=== PATIENT | female | born 1960 | race Caucasian/White ===

== ENCOUNTER → 2018-05-26 09:13 | Outpatient (CLI) | payer OTHER, SELFPAY ==
[2018-05-26 11:05] LABS: Cholesterol 255 mg/dL (140-199); HDL Cholesterol 71 mg/dL (40-60); LDL Cholesterol Calculated 152 mg/dL (<100); Triglycerides 160 mg/dL (35-150)
== END ==
PROVIDERS: PCP Family Medicine; Visit Provider Family Medicine
DX: Z13.220 Encounter for screening for lipoid disorders (principal)
CPT/HCPCS: 36415; 80061

== ENCOUNTER → 2018-07-12 08:18 | Outpatient (CLI) | payer OTHER, MEDICAID, SELFPAY ==
--- NOTE | 2018-07-12 | DI.MG.S_ITS ---
BILATERAL DIGITAL SCREENING MAMMOGRAM 3D/2D WITH CAD: 07/12/2018 CLINICAL: Routine screening. Comparison is made to exams dated: 01/27/2017 mammogram, 06/22/2016 mammogram, and 05/27/2015 mammogram - [facility] 1041. The tissue of both breasts is heterogeneously dense. This may lower the sensitivity of mammography. Current study was also evaluated with a Computer Aided Detection (CAD) system. There are benign vascular calcifications in both breasts. No significant masses, calcifications, or other findings are seen in either breast. There has been no significant interval change. IMPRESSION: BENIGN There is no mammographic evidence of malignancy. A 1 year screening mammogram is recommended. This exam was interpreted at Station ID: [id number]. NOTE: For mammograms, a report in lay terms will be sent to the patient. Approximately 15% of breast malignancies will not be visualized mammographically. In the management of a palpable breast mass, a negative mammogram must not discourage biopsy of a clinically suspicious lesion. Electronically Signed By: Lukas myles/soraya:07/13/2018 01:12:38 letter sent: Normal Exam ACR BI-RADS Category 2: Benign Finding(s) 3342F
== END ==
PROVIDERS: PCP Family Medicine; Visit Provider Family Medicine
DX: Z12.31 Encounter for screening mammogram for malignant neoplasm of breast (principal)
CPT/HCPCS: 77063; 77067

== ENCOUNTER → 2019-02-05 10:55 | Outpatient (CLI) | payer OTHER, MEDICAID, SELFPAY ==
[2019-02-05 12:08] LABS: Add Manual Diff / Slide Review NO; Basophils Absolute Auto 100 /uL (0-100); Basophils Percent Auto 1.4 % (0-2); Eosinophils Absolute Auto 100 /uL (0-450); Eosinophils Percent Auto 1.6 % (2-4); Hematocrit 37.7 % (36-46); Hemoglobin 12.4 g/dL (12.0-16.0); Lymphocytes Absolute Auto 1400 /uL (1100-4500); Lymphocytes Percent Auto 30.3 % (25-40); Mean Corpuscular HGB Conc 32.9 % (30-36); Mean Corpuscular Hemoglobin 29.9 PG (26-34); Mean Corpuscular Volume 90.7 fL (80-100); Monocytes Absolute Auto 400 /uL (0-900); Monocytes Percent Auto 8.1 % (3-14); Neutrophils Absolute Auto 2700 /uL (1500-7000); Neutrophils Percent Auto 58.6 % (50-75); Platelet Count 324 X10^3/uL (150-400); Red Blood Cell Count 4.16 X10^6/uL (4.0-5.2); Red Cell Distribution Width 14.3 % (11.6-14.8); White Blood Cell Count 4.6 X10^3/uL (4.5-11.0)
[2019-02-05 12:37] LABS: Alanine Aminotransferase 29 IU/L (9-52); Albumin 4.3 g/dL (3.5-5.0); Albumin Globulin Ratio 1.3 (1.0-2.8); Alkaline Phosphatase 86 U/L (38-126); Aspartate Aminotransferase 37 IU/L (14-36); Bilirubin Total 0.4 mg/dL (0.2-1.3); Blood Urea Nitrogen 13 mg/dL (7-17); Calcium 9.2 mg/dL (8.4-10.2); Carbon Dioxide 28 mmol/L (22-32); Chloride 103 mmol/L (98-107); Estimated Glomerular Filt Rate 56.9 mL/min (>60); Globulin 3.3 g/dL (1.7-4.1); Glucose 81 mg/dL (70-100); HEMOLYSIS < 15 (0-50); Potassium 4.4 mmol/L (3.4-5.1); Sodium 139 mmol/L (137-145); Total Protein 7.6 g/dL (6.3-8.2)
[2019-02-05 13:05] LABS: Cortisol Random 6.39 ug/dL
[2019-02-07 14:13] LABS: Dehydroepiandrosterone Sulfate 11 mcg/dL (8-188)
== END ==
PROVIDERS: PCP Family Medicine; Visit Provider Family Medicine
DX: M79.7 Fibromyalgia (principal); R53.83 Other fatigue
CPT/HCPCS: 36415; 80053; 82533; 82627; 85025

== ENCOUNTER → 2019-05-04 10:36 | Outpatient (CLI) | payer OTHER, MEDICAID, SELFPAY ==
[2019-05-04 12:40] LABS: Add Manual Diff / Slide Review NO; Basophils Absolute Auto 0 /uL (0-100); Eosinophils Absolute Auto 100 /uL (0-450); Eosinophils Percent Auto 1.5 % (2-4); Hematocrit 40.4 % (36-46); Hemoglobin 13.3 g/dL (12.0-16.0); Lymphocytes Absolute Auto 1300 /uL (1100-4500); Lymphocytes Percent Auto 31.1 % (25-40); Mean Corpuscular HGB Conc 32.9 % (30-36); Mean Corpuscular Hemoglobin 29.7 PG (26-34); Mean Corpuscular Volume 90.4 fL (80-100); Monocytes Absolute Auto 300 /uL (0-900); Monocytes Percent Auto 6.6 % (3-14); Neutrophils Absolute Auto 2500 /uL (1500-7000); Neutrophils Percent Auto 59.8 % (50-75); Platelet Count 355 X10^3/uL (150-400); Red Blood Cell Count 4.47 X10^6/uL (4.0-5.2); Red Cell Distribution Width 14.3 % (11.6-14.8); White Blood Cell Count 4.1 X10^3/uL (4.5-11.0)
[2019-05-04 13:21] LABS: Alanine Aminotransferase 18 IU/L (9-52); Albumin 4.5 g/dL (3.5-5.0); Albumin Globulin Ratio 1.5 (1.0-2.8); Alkaline Phosphatase 84 U/L (38-126); Aspartate Aminotransferase 23 IU/L (14-36); BUN Creatinine Ratio 17.5 (6-22); Bilirubin Total 0.5 mg/dL (0.2-1.3); Blood Urea Nitrogen 14 mg/dL (7-17); Calcium 9.8 mg/dL (8.4-10.2); Carbon Dioxide 26 mmol/L (22-32); Chloride 106 mmol/L (98-107); Estimated Glomerular Filt Rate > 60.0 mL/min (>60); Globulin 3.1 g/dL (1.7-4.1); Glucose 90 mg/dL (70-100); HEMOLYSIS < 15 (0-50); Potassium 4.6 mmol/L (3.4-5.1); Sodium 142 mmol/L (137-145); Total Protein 7.6 g/dL (6.3-8.2)
[2019-05-04 13:32] LABS: Free T3, Triiodothyronine Free 4.25 pg/mL (2.77-5.27); Free T4, Direct Thyroxine 1.54 ng/dL (0.78-2.19)
[2019-05-04 13:46] LABS: Thyroid Stimulating Hormone 1.66 uIU/mL (0.47-4.68)
[2019-05-04 14:41] LABS: Progesterone, Total 0.59 ng/mL
[2019-05-08 15:01] LABS: Thyroid Peroxidase Antibodies 1 IU/mL (< 9)
[2019-05-08 15:31] LABS: CMV IgM Antibody < 30.00 AU/mL (< 30.00)
[2019-05-08 22:13] LABS: Draw Date 3 62719; Draw Date 4 62719; Draw Time 3 1200; Draw Time 3 1600; Draw Time 4 2400
[2019-05-09 14:39] LABS: Anti Thyroglobulin Antibody < 1 IU/mL (< 2)
[2019-05-11 11:52] LABS: Triiodothyronine T3 Reverse 15 ng/dL (8-25)
[2019-05-11 15:58] LABS: Dehydroepiandrosterone Sulfate 25 mcg/dL (8-188)
== END ==
PROVIDERS: Family Provider Family Medicine; PCP Family Medicine; Visit Provider Naturopath
DX: K59.00 Constipation, unspecified (principal); F33.0 Major depressive disorder, recurrent, mild; N95.1 Menopausal and female climacteric states
CPT/HCPCS: 36415; 80053; 82530; 82627; 82670; 84144; 84403; 84439; 84443; 84481; 84482; 85025; 86376; 86644; 86645; 86664; 86665; 86790; 86800

== ENCOUNTER → 2020-06-18 13:00 | Outpatient (CLI) | payer OTHER, MEDICAID, SELFPAY ==
[2020-06-18 15:25] LABS: Free T3, Triiodothyronine Free 3.48 pg/mL (2.77-5.27); Free T4, Direct Thyroxine 1.18 ng/dL (0.78-2.19)
[2020-06-18 15:39] LABS: Thyroid Stimulating Hormone 1.61 uIU/mL (0.47-4.68)
== END ==
PROVIDERS: Family Provider Family Medicine; PCP Family Medicine
DX: E03.9 Hypothyroidism, unspecified (principal)
CPT/HCPCS: 36415; 84439; 84443; 84481

== ENCOUNTER → 2020-07-17 15:30 | Outpatient (CLI) | payer OTHER, MEDICAID, SELFPAY ==
--- NOTE | 2020-07-17 15:43 | DI.MG.S_ITS ---
Patient Name: SAAD RAMOS date: 1960 Sex: F Attending Physician: Opal Indications: Date: 07/17/2020 15:33 At the request of: STALIN GARCIA Procedure: MM screening mammo BI BILATERAL DIGITAL SCREENING MAMMOGRAM 3D/2D WITH CAD: 07/17/2020 CLINICAL: Routine screening. Comparison is made to exams dated: 07/12/2018 mammogram - [facility], 01/27/2017 mammogram, and 06/22/2016 mammogram - [facility]. The tissue of both breasts is heterogeneously dense. This may lower the sensitivity of mammography. Current study was also evaluated with a Computer Aided Detection (CAD) system. There are benign vascular calcifications in both breasts. No significant masses, calcifications, or other findings are seen in either breast. There has been no significant interval change. IMPRESSION: BENIGN There is no mammographic evidence of malignancy. A 1 year screening mammogram is recommended. This exam was interpreted at Station ID: [id number]. NOTE: For mammograms, a report in lay terms will be sent to the patient. Approximately 15% of breast malignancies will not be visualized mammographically. In the management of a palpable breast mass, a negative mammogram must not discourage biopsy of a clinically suspicious lesion. Electronically Signed By: Donald urias/soraya:07/17/2020 17:29:42 letter sent: Normal Exam ACR BI-RADS Category 2: Benign Finding(s) 3342F
== END ==
PROVIDERS: Family Provider Family Medicine; PCP Family Medicine; Referring Provider Family Medicine; Visit Provider Family Medicine
DX: Z12.31 Encounter for screening mammogram for malignant neoplasm of breast (principal)
CPT/HCPCS: 77063; 77067

== ENCOUNTER → 2020-09-06 08:22 | Outpatient (CLI) | payer OTHER, MEDICAID, SELFPAY ==
[2020-09-06 09:20] LABS: Add Manual Diff / Slide Review NO; Basophils Absolute Auto 100 /uL (0-100); Basophils Percent Auto 0.8 % (0-2); Eosinophils Absolute Auto 100 /uL (0-450); Eosinophils Percent Auto 1.4 % (2-4); Hematocrit 36.9 % (36-46); Hemoglobin 12.3 g/dL (12.0-16.0); Lymphocytes Absolute Auto 1700 /uL (1100-4500); Mean Corpuscular HGB Conc 33.2 % (30-36); Mean Corpuscular Hemoglobin 30.7 PG (26-34); Mean Corpuscular Volume 92.5 fL (80-100); Monocytes Absolute Auto 500 /uL (0-900); Monocytes Percent Auto 7.6 % (3-14); Neutrophils Absolute Auto 4200 /uL (1500-7000); Neutrophils Percent Auto 64.2 % (50-75); Platelet Count 347 X10^3/uL (150-400); Red Blood Cell Count 3.99 X10^6/uL (4.0-5.2); Red Cell Distribution Width 13.4 % (11.6-14.8); White Blood Cell Count 6.5 X10^3/uL (4.5-11.0)
[2020-09-06 09:35] LABS: Alanine Aminotransferase 15 IU/L (<35); Albumin 3.8 g/dL (3.5-5.0); Albumin Globulin Ratio 1.2 (1.0-2.8); Alkaline Phosphatase 61 U/L (38-126); Aspartate Aminotransferase 25 IU/L (14-36); BUN Creatinine Ratio 21.4 (6-22); Bilirubin Total 0.3 mg/dL (0.2-1.3); Blood Urea Nitrogen 18 mg/dL (7-17); Calcium 8.4 mg/dL (8.4-10.2); Carbon Dioxide 28 mmol/L (22-32); Chloride 108 mmol/L (98-107); Estimated Glomerular Filt Rate > 60.0 mL/min (>60); Globulin 3.1 g/dL (1.7-4.1); Glucose 91 mg/dL (70-100); HEMOLYSIS < 15 (0-50); Sodium 138 mmol/L (137-145); Total Protein 6.9 g/dL (6.3-8.2)
[2020-09-06 10:04] LABS: Free T3, Triiodothyronine Free 3.23 pg/mL (2.77-5.27); Free T4, Direct Thyroxine 1.17 ng/dL (0.78-2.19)
[2020-09-06 10:18] LABS: Thyroid Stimulating Hormone 0.927 uIU/mL (0.47-4.68)
== END ==
PROVIDERS: Naturopath; Family Provider Family Medicine; PCP Family Medicine; Referring Provider Family Medicine; Visit Provider Family Medicine
DX: D70.9 Neutropenia, unspecified (principal); Z13.1 Encounter for screening for diabetes mellitus
CPT/HCPCS: 36415; 80053; 84439; 84443; 84481; 85025

== ENCOUNTER → 2020-10-06 07:22 | Outpatient (CLI) | payer OTHER, MEDICAID, SELFPAY ==
[2020-10-06 10:20] LABS: HEMOLYSIS < 15 (0-50); Iron 59 ug/dL (37-170)
[2020-10-06 10:21] LABS: Cholesterol 252 mg/dL (140-199); HDL Cholesterol 50 mg/dL (40-60); LDL Cholesterol Calculated 157 mg/dL (<100); Triglycerides 224 mg/dL (35-150)
[2020-10-06 10:32] LABS: Percent Iron Saturation 20 % (15-50); Total Iron Binding Capacity 302 ug/dL (265-497); Transferrin 223 mg/dL (206-381)
[2020-10-06 10:37] LABS: Progesterone, Total 0.53 ng/mL
[2020-10-06 10:54] LABS: Testosterone 9.31 ng/dL (5.71-77.0)
[2020-10-08 12:27] LABS: Estriol,Serum 0.1 ng/mL (.); Estrone,Serum 129 pg/mL (.)
== END ==
PROVIDERS: Family Provider Family Medicine; PCP Family Medicine; Referring Provider Naturopath; Visit Provider Naturopath
DX: E03.9 Hypothyroidism, unspecified (principal)
CPT/HCPCS: 36415; 80061; 82670; 82677; 82679; 83540; 83550; 84144; 84270; 84403

== ENCOUNTER → 2021-01-26 07:54 | Outpatient (CLI) | payer OTHER, MEDICAID, SELFPAY ==
[2021-01-26 08:59] LABS: Add Manual Diff / Slide Review NO; Basophils Absolute Auto 0 /uL (0-100); Basophils Percent Auto 0.7 % (0-2); Eosinophils Absolute Auto 100 /uL (0-450); Eosinophils Percent Auto 1.7 % (2-4); Hematocrit 35.9 % (36-46); Hemoglobin 12.1 g/dL (12.0-16.0); Lymphocytes Absolute Auto 1700 /uL (1100-4500); Lymphocytes Percent Auto 28.1 % (25-40); Mean Corpuscular HGB Conc 33.8 % (30-36); Mean Corpuscular Hemoglobin 30.9 PG (26-34); Mean Corpuscular Volume 91.3 fL (80-100); Monocytes Absolute Auto 400 /uL (0-900); Monocytes Percent Auto 6.5 % (3-14); Neutrophils Absolute Auto 3900 /uL (1500-7000); Platelet Count 379 X10^3/uL (150-400); Red Blood Cell Count 3.93 X10^6/uL (4.0-5.2); Red Cell Distribution Width 13.2 % (11.6-14.8); White Blood Cell Count 6.1 X10^3/uL (4.5-11.0)
[2021-01-26 09:23] LABS: Progesterone, Total 0.95 ng/mL
[2021-01-26 09:38] LABS: Testosterone 13.2 ng/dL (5.71-77.0)
[2021-02-02 11:26] LABS: Estriol,Serum <0.1 ng/mL (.); Estrone,Serum 211 pg/mL (.)
== END ==
PROVIDERS: Family Provider Family Medicine; PCP Family Medicine; Referring Provider Naturopath; Visit Provider Naturopath
DX: Z79.890 Hormone replacement therapy (principal); R79.89 Other specified abnormal findings of blood chemistry
CPT/HCPCS: 36415; 82670; 82677; 82679; 84144; 84270; 84403; 85025

== ENCOUNTER → 2021-03-02 09:23 | Outpatient (CLI) | payer OTHER, MEDICAID, SELFPAY ==
[2021-03-02 11:42] LABS: Estradiol, Total 182.7 pg/mL
== END ==
PROVIDERS: Family Provider Family Medicine; PCP Family Medicine; Referring Provider Naturopath; Visit Provider Naturopath
DX: Z79.890 Hormone replacement therapy (principal); R79.89 Other specified abnormal findings of blood chemistry
CPT/HCPCS: 36415; 82670; 82679

== ENCOUNTER → 2022-01-05 07:52 | Outpatient (CLI) | payer OTHER, MEDICAID, SELFPAY ==
[2022-01-05 10:04] LABS: Alanine Aminotransferase 10 IU/L (<35); Albumin Globulin Ratio 1.4 (1.0-2.8); Alkaline Phosphatase 49 U/L (38-126); Aspartate Aminotransferase 21 IU/L (14-36); BUN Creatinine Ratio 15.4 (6-22); Bilirubin Total 0.3 mg/dL (0.2-1.3); Blood Urea Nitrogen 12 mg/dL (7-17); Calcium 8.9 mg/dL (8.4-10.2); Carbon Dioxide 27 mmol/L (22-32); Chloride 108 mmol/L (98-107); Estimated Glomerular Filt Rate > 60.0 mL/min (>60); Globulin 2.9 g/dL (1.7-4.1); Glucose 86 mg/dL (80-110); HEMOLYSIS < 15 (0-50); Potassium 4.6 mmol/L (3.4-5.1); Sodium 139 mmol/L (137-145); Total Protein 6.9 g/dL (6.3-8.2)
== END ==
PROVIDERS: Family Provider Family Medicine; PCP Family Medicine; Referring Provider Family Medicine; Visit Provider Family Medicine
DX: Z01.419 Encounter for gynecological examination (general) (routine) without abnormal findings (principal); Z13.1 Encounter for screening for diabetes mellitus; Z79.890 Hormone replacement therapy
CPT/HCPCS: 36415; 80053

== ENCOUNTER → 2022-07-13 16:11 | Outpatient (CLI) | payer OTHER, MEDICAID, SELFPAY ==
--- NOTE | 2022-07-13 16:12 | DI.MG.S_ITS ---
BILATERAL DIGITAL SCREENING MAMMOGRAM 3D/2D WITH CAD: 07/13/2022 CLINICAL: Routine screening. Comparison is made to exams dated: 07/17/2020 mammogram, 07/12/2018 mammogram - [facility], and 01/27/2017 mammogram - [facility]. Both breasts are heterogeneously dense, which may obscure small masses (category c / 51-75% glandular tissue). Current study was also evaluated with a Computer Aided Detection (CAD) system. There is a possible developing oval equal density asymmetry in the left breast middle depth superior region seen on the mediolateral oblique view only. This is more prominent. No other significant masses, calcifications, or other findings are seen in either breast. IMPRESSION: INCOMPLETE: NEEDS ADDITIONAL IMAGING EVALUATION The possible developing oval equal density asymmetry in the left breast is indeterminate. Additional views with possible ultrasound are recommended. Based on the Tyrer Cuzick model (a risk assessment model) the patient's lifetime risk is 9.1% and her 10 year risk is 3.8%. According to the ACR, ACS, and NCCN guidelines, an annual breast MRI exam along with mammogram is recommended if the patient's lifetime risk is 20% or greater. This exam was interpreted at Station ID: [id number]. NOTE: For mammograms, a report in lay terms will be sent to the patient. Approximately 15% of breast malignancies will not be visualized mammographically. In the management of a palpable breast mass, a negative mammogram must not discourage biopsy of a clinically suspicious lesion. Electronically Signed By: Donald urias/soraya:07/14/2022 08:41:47 letter sent: Additional Imaging Needed ACR BI-RADS Category 0: Incomplete 3340F
== END ==
PROVIDERS: Family Provider Family Medicine; PCP Family Medicine; Referring Provider Family Medicine; Visit Provider Family Medicine
DX: Z12.31 Encounter for screening mammogram for malignant neoplasm of breast (principal); R92.8 Other abnormal and inconclusive findings on diagnostic imaging of breast
CPT/HCPCS: 77063; 77067

== ENCOUNTER → 2022-07-26 08:43 | Outpatient (CLI) | payer OTHER, MEDICAID, SELFPAY ==
--- NOTE | 2022-07-26 | DI.MG.S_ITS ---
UNILATERAL LEFT DIGITAL DIAGNOSTIC MAMMOGRAM 3D/2D WITH ADDITIONAL VIEWS: 07/26/2022 CLINICAL: Additional evaluation requested from prior study. Comparison is made to exams dated: 07/13/2022 mammogram, 07/17/2020 mammogram, and 07/12/2018 mammogram - . The left breast is heterogeneously dense, which may obscure small masses (category c / 51-75% glandular tissue). The possible asymmetry in the left breast middle depth superior region seen on the mediolateral oblique view only is no longer seen and most likely is fibroglandular tissue. No other significant masses or calcifications are seen in the breast. IMPRESSION: PROBABLY BENIGN A follow-up mammogram in 6 months is recommended to confirm the no longer seen asymmetry in the left breast middle depth superior region seen on the mediolateral oblique view only. A follow-up mammogram in 6 months is recommended to demonstrate stability. Based on the Tyrer Cuzick model (a risk assessment model) the patient's lifetime risk is 9.1% and her 10 year risk is 3.8%. According to the ACR, ACS, and NCCN guidelines, an annual breast MRI exam along with mammogram is recommended if the patient's lifetime risk is 20% or greater. This exam was interpreted at Station ID: [id number]. NOTE: For mammograms, a report in lay terms will be sent to the patient. Approximately 15% of breast malignancies will not be visualized mammographically. In the management of a palpable breast mass, a negative mammogram must not discourage biopsy of a clinically suspicious lesion. Electronically Signed By: Jon Bueno M.D., jr/soraya:07/26/2022 10:03:01 letter sent: Followup Recommended ACR BI-RADS Category 3: Probably benign 3343F
== END ==
PROVIDERS: Family Provider Family Medicine; PCP Family Medicine; Referring Provider Family Medicine; Visit Provider Family Medicine
DX: N64.89 Other specified disorders of breast (principal)
CPT/HCPCS: 77065; G0279

== ENCOUNTER → 2022-08-18 15:06 | Outpatient (CLI) | payer OTHER, MEDICAID, SELFPAY ==
[2022-08-18 17:20] LABS: COVID19 -Nasal RAPID Negative (Negative)
== END ==
PROVIDERS: Family Provider Family Medicine; PCP Family Medicine; Visit Provider Surgery
DX: Z01.812 Encounter for preprocedural laboratory examination (principal); Z20.822 Contact with and (suspected) exposure to COVID-19
CPT/HCPCS: 87635; C9803

== ENCOUNTER 2022-08-19 13:53 | Day surgery (SDC) | payer OTHER, MEDICAID, SELFPAY ==
--- NOTE | 2022-08-19 | PATH_ITS ---
[facility] Accession Number: [id number] . 01 Material submitted: . rectum - RECTAL POLYP . 01 Diagnosis: Rectum, Polyp, Biopsy: Hyperplastic polyp. MRV 08/23/2022 1216 Local . 01 Electronically signed: . Tamela Fox MD, Pathologist NPI- [id number] . 01 Gross description: . RECTAL POLYP: Received in formalin is 1 fragment(s) of ramírez, soft tissue measuring 0.4 x 0.3 x 0.2 cm submitted entirely in 1 cassette(s) /LUIS 08/21/2022 0021 Local . 01 Pathologist provided ICD-10: K63.5 . 01 CPT . 934154 Specimen Comment: A courtesy copy of this report has been sent to [phone] Performed at: 01 [facility] [address] [place] [address] [id number] MD Amadeo Baldwin MD Phone: [phone]
[2022-08-19 14:10] VITALS: BP 114/78; PULSE 76; RESP 17; TEMP 36.2; O2SAT 97; BMI 27.4
[2022-08-19] MEDS: LACTATED RINGERS 1,000 ML 84 ML IV (14:34)
--- NOTE | 2022-08-19 15:27 | PM.HP.1 ---
History of Present Illness History of Present Illness Date Patient Seen: 08/19/22 Time Patient Seen: 15:28 Chief complaint: SCREENING COLONOSCOPY Narrative: Migdalia is a 61-year-old woman who is here for a colonoscopy. She believes her last was about 10 years ago and no polyps were found. She was told she had diverticulosis at that time. She has had mild to moderate left lower quadrant pain for the past few months. Patient History Medical History (Updated 08/19/22 @ 15:28 by Isiah Garcia MD) Basal cell carcinoma Chicken pox Depression (~1998) Fibromyalgia (~2015) Mumps (~1970) Tinnitus (~2016) Surgical History Anesthesia History of endometrial ablation (~2003) Status post knee surgery (~2002) Family & Social History Family History Grandfather Stroke Grandmother Heart disease Social History: household members spouse Tobacco & Substance use: Smoking Status Never smoker alcohol intake current alcohol intake frequency a few times a month Meds Home Medications and Allergies Home Medications Medication Instructions Recorded Confirmed Type Supplement list in scans See Rx Instructions .Route .COMPLEX 05/20/20 08/09/22 History multivitamin (Daily Multi-Vitamin 1 tab PO DAILY 05/20/20 08/09/22 History tablet) testosterone 1mg 1 tab PO .QD 05/20/20 08/19/22 History duloxetine 60 mg capsule,delayed 60 mg PO QDAY #90 caps 08/09/22 08/19/22 Rx release gabapentin 400 mg capsule See Rx Instructions .Route 08/09/22 08/19/22 Rx .COMPLEX #90 caps peg 3350-electrolytes 236 240 ml PO Q10M #4,000 mL 08/10/22 08/19/22 Rx gram-22.74 gram-6.74 gram-5.86 gram solution (Golytely) clobetasol 0.05 % topical ointment 1 applic topical BEDTIME #15 grams 08/13/22 08/19/22 Rx estradiol 0.01% (0.1 mg/gram) See Rx Instructions .Route 08/13/22 08/19/22 Rx vaginal cream .COMPLEX #42.5 grams Allergies Allergy/AdvReac Type Severity Reaction Status Date / Time No Known Allergies Allergy Uncoded 08/19/22 14:28 Exam Vital Signs (past 8 hours): - 08/19/22 14:10 Temperature 97.1 F L Pulse Rate 76 Respiratory Rate 17 Blood Pressure 114/78 Pulse Oximetry 97 Oxygen Delivery Method Room Air Oxygen Delivery Method Room Air Const General: healthy appearing Assessment & Plan Assessment and plan (1) Colon cancer screening: Status: Acute Plan We reviewed the risks and benefits of colonoscopy for colon cancer screening and she would like to proceed. Time Spent With Patient Critical Care time: I spent a total of [] minutes of critical care time on this patient's care today; this time is exclusive of procedural time.
[2022-08-19] MEDS: fentaNYL 100 MCG/2 ML INJ 275 MCG IV (16:03)
[2022-08-19] MEDS: MIDAZOLAM 5 MG/5 ML VIAL 11 MG IV (16:04)
--- NOTE | 2022-08-19 16:17 | PM.OP.COLON ---
Operative Date/Time/Diagnoses Date of procedure: 08/19/22 Time of procedure: 16:17 Pre-op diagnosis: Colon cancer screening Post-op diagnosis: same Procedure & Clinicians Study performed: Colonoscopy Same procedure as scheduled: Yes Surgeon: Isiah Garcia Procedure Notes Procedure in detail: Surgeon: Isiah Garcia MD Procedure: The patient was brought to the endoscopy suite, placed in left lateral decubitus position. The patient was connected to monitoring devices. A time-out was performed. Sedation was administered. Once the patient was adequately sedated, a digital rectal exam was performed and was normal. The scope was then inserted and advanced to the cecum where the appendiceal orifice was identified and photographed. The scope was then slowly withdrawn over greater than 6 minutes. The mucosa was thoroughly inspected. No diverticula were noted. There was a 3 mm polyp in the rectum which was removed Jumbo forceps. The scope was retroflexed in the rectum. No abnormalities were noted. The scope was straightened and removed. The patient was awakened and brought to recovery. Versed: 11 mg Fentanyl: 275 mcg EBL: 5 mL Findings: 3 mm rectal polyp Scope withdrawal time: 14 Sedation minutes: 39 Post-procedure Recommendations: Will call with biopsy results Disposition: PACU
[2022-08-19 16:21] VITALS: BP 114/79; PULSE 83; RESP 15; TEMP 36.2; O2SAT 98
[2022-08-19 16:26] VITALS: BP 125/81; PULSE 79; RESP 12; O2SAT 98
[2022-08-19 16:31] VITALS: BP 107/71; PULSE 75; RESP 15; TEMP 36.2; O2SAT 98
[2022-08-19 16:40] VITALS: BP 123/71; PULSE 77; RESP 11; TEMP 36.3; O2SAT 99
== END 2022-08-19 17:05 | disposition home or self-care (01) ==
PROVIDERS: Family Provider Family Medicine; PCP Family Medicine; Referring Provider Surgery; Visit Provider Surgery
PROC: 0DJD8ZZ Inspection of Lower Intestinal Tract, Via Natural or Artificial Opening Endoscopic (ICD-10-PCS; CPT 45378; principal; 2022-08-19 15:00)
DX: Z12.11 Encounter for screening for malignant neoplasm of colon (principal); K63.5 Polyp of colon
CPT/HCPCS: 45380; 99152; 99153; J2250; J3010

== ENCOUNTER → 2023-01-08 10:23 | Outpatient (CLI) | payer OTHER, MEDICAID, SELFPAY ==
[2023-01-08 10:48] LABS: Add Manual Diff / Slide Review NO; Basophils Absolute Auto 0 /uL (0-100); Basophils Percent Auto 0.6 % (0-2); Eosinophils Absolute Auto 100 /uL (0-450); Hematocrit 39.2 % (36-46); Hemoglobin 13.1 g/dL (12.0-16.0); Lymphocytes Absolute Auto 1900 /uL (1100-4500); Lymphocytes Percent Auto 35.2 % (25-40); Mean Corpuscular HGB Conc 33.5 % (30-36); Mean Corpuscular Hemoglobin 29.8 PG (26-34); Monocytes Absolute Auto 400 /uL (0-900); Monocytes Percent Auto 7.6 % (3-14); Neutrophils Absolute Auto 2900 /uL (1500-7000); Neutrophils Percent Auto 54.6 % (50-75); Platelet Count 354 X10^3/uL (150-400); Red Cell Distribution Width 13.8 % (11.6-14.8); White Blood Cell Count 5.3 X10^3/uL (4.5-11.0)
[2023-01-08 10:59] LABS: Alanine Aminotransferase 16 IU/L (<35); Albumin 4.2 g/dL (3.5-5.0); Albumin Globulin Ratio 1.2 (1.0-2.8); Alkaline Phosphatase 88 U/L (38-126); Aspartate Aminotransferase 23 IU/L (14-36); BUN Creatinine Ratio 14.1 (6-22); Bilirubin Total 0.5 mg/dL (0.2-1.3); Blood Urea Nitrogen 13 mg/dL (7-17); Calcium 9.3 mg/dL (8.4-10.2); Carbon Dioxide 30 mmol/L (22-32); Chloride 104 mmol/L (98-107); Cholesterol 307 mg/dL (140-199); Estimated Glomerular Filt Rate > 60 mL/min (>60); Globulin 3.4 g/dL (1.7-4.1); Glucose 97 mg/dL (80-110); HDL Cholesterol 75 mg/dL (40-60); HEMOLYSIS < 15 (0-50); LDL Cholesterol Calculated 191 mg/dL (<100); Potassium 4.2 mmol/L (3.4-5.1); Sodium 139 mmol/L (137-145); Total Protein 7.6 g/dL (6.3-8.2); Triglycerides 206 mg/dL (35-150)
[2023-01-08 11:29] LABS: TSH w/ Reflex to FT4 1.28 uIU/mL (0.47-4.68)
== END ==
PROVIDERS: Family Provider Family Medicine; PCP Family Medicine; Referring Provider Family Medicine; Visit Provider Family Medicine
DX: E66.3 Overweight (principal)
CPT/HCPCS: 36415; 80053; 80061; 84443; 85025

== ENCOUNTER 2023-02-27 13:42 | Emergency (ER) | payer OTHER, MEDICAID, SELFPAY ==
[2023-02-27 13:55] VITALS: BP 104/67; PULSE 81; RESP 16; TEMP 37.1; O2SAT 100; BMI 27.4
--- NOTE | 2023-02-27 14:00 | DI.RAD.S_ITS ---
PROCEDURE: XR WRIST RT MIN 3V INDICATIONS: fall TECHNIQUE: 3 views of the wrist were acquired. COMPARISON: None. FINDINGS: Bones: Comminuted intra-articular distal radial fracture without significant displacement angulation distal fracture fragments. Soft tissues: No suspicious soft tissue calcifications. IMPRESSION: Comminuted intra-articular distal radial fracture Approved by: Og Singletary M.D. on 02/27/2023 at 14:23
--- NOTE | 2023-02-27 14:48 | ED_ITS ---
HPI - Extremity Injury (Upper) General Chief Complaint: Extremity Injury, Upper Stated Complaint: RT WRIST INJURY Time Seen by Provider: 02/27/23 14:14 History of Present Illness HPI narrative: Patient is a 62-year-old female who presents with right wrist injury. She said she was out a tide pool she to many things her hands she slipped and fell. She denies any head injury neck pain or any other symptoms. No numbness or tingling. She is not have any antiplatelet or anticoagulation medication. Tetanus up-to-date, right-hand Related Data Home Medications Medication Instructions Recorded Confirmed multivitamin (Daily Multi-Vitamin 1 tab PO DAILY 05/20/20 01/10/23 tablet) Previous Rx's Medication Instructions Recorded duloxetine 60 mg capsule,delayed 60 mg PO QDAY #90 caps 08/09/22 release clobetasol 0.05 % topical ointment 1 applic topical BEDTIME #15 grams 08/13/22 estradiol 0.01% (0.1 mg/gram) See Rx Instructions .Route 08/13/22 vaginal cream .COMPLEX #42.5 grams gabapentin 400 mg capsule See Rx Instructions .Route 02/07/23 .COMPLEX #90 caps hydrocodone 5 mg-acetaminophen 325 1 tab PO Q6H PRN pain #10 tabs 02/27/23 mg tablet Allergies Allergy/AdvReac Type Severity Reaction Status Date / Time No Known Drug Allergies Allergy Verified 01/10/23 12:04 Review of Systems Review of Systems ROS Unobtainable: All systems reviewed & are unremarkable except as noted in HPI and below Patient History Medical History Basal cell carcinoma Chicken pox Depression (~1998) Fibromyalgia (~2015) Generalized anxiety disorder Mumps (~1970) Overweight (BMI 25.0-29.9) Tinnitus (~2016) Surgical History Anesthesia History of endometrial ablation (~2003) Status post knee surgery (~2002) Family History Grandfather Stroke Grandmother Heart disease Social History marital status: household members: spouse housing: house occupational status: previously employed Smoking Status: Never smoker second hand exposure: Yes (childhood) alcohol intake: current substance use type: marijuana Smoking Status: Never smoker alcohol intake frequency: a few times a month Exam Initial Vital Signs Initial Vital Signs: Vital Signs Temperature 98.7 F 02/27/23 13:55 Pulse Rate 81 02/27/23 13:55 Respiratory Rate 16 02/27/23 13:55 Blood Pressure 104/67 02/27/23 13:55 Pulse Oximetry 100 02/27/23 13:55 Oxygen Delivery Method Room Air 02/27/23 13:55 GENERAL: Well-appearing, well-nourished and in no acute distress. CARDIOVASCULAR: peripheral pulses in tact, cap refill <2 sec RESPIRATORY: No respiratory distress, speaks in full sentences without difficulty EXTREMITIES: Normal range of motion, no clubbing or edema. Neurovascularly intact Distal radial pulse intact mild swelling NEUROLOGICAL: Cranial nerves II through XII grossly intact. Normal gait and speech. SKIN: Warm, dry, no petechiae, no rashes or lesions. Procedures Orthopedic Splinting/Casting Injury #1: Upper Extremity Injury Location: wrist Upper Extremity Immobilizer: sugar tong splint Post splinting neuro exam: intact Post splinting vascular exam: intact Course Orders Ordered: ED Orders 02/27/23 14:00 XR wrist RT min 3V Stat Discontinued Medications Hydrocodone Bitart/Acetaminophen (Hydrocodone/Acet 5/325 Tablet) 1 tab PO NOW ONE Stop: 02/27/23 15:00 Last Admin: 02/27/23 15:05 Dose: 1 tab Documented By: MO Vital Signs Vital signs: Vital Signs - 8 hr 02/27/23 13:55 Temperature 98.7 F Pulse Rate 81 Respiratory Rate 16 Blood Pressure 104/67 Pulse Oximetry 100 Oxygen Delivery Method Room Air MDM - Extremity Injury (Upper) Imaging Data Extremity x-ray #1: Radiologist's Impression: PROCEDURE:? XR WRIST RT MIN 3V ? INDICATIONS: fall ? TECHNIQUE:? 3 views of the wrist were acquired.? ? COMPARISON:? None. ? FINDINGS:? ? Bones:? Comminuted intra-articular distal radial fracture without significant displacement angulation distal fracture fragments. ? ? Soft tissues:? No suspicious soft tissue calcifications.? ? IMPRESSION:? Comminuted intra-articular distal radial fracture ? ? ? Approved by: Og Singletary M.D. on 02/27/2023 at 14:23? MDM Narrative Medical decision making narrative: Patient 62-year-old distal fracture after mechanical trip and fall. No other injuries. Neurovascularly intact. No significant angulation or displacement no need for reduction. She is splinted. [place] has helped quite a bit with for her pain. Recommend follow-up with Orthopedics. Ring was removed by myself and given to patient Discharge Plan Departure Patient Disposition: Home Clinical Impression: Distal radius fracture, right Instructions: DI for Wrist Fracture Activity Restrictions/Additional Instructions: *You have been diagnosed with distal radial fracture *What to do: Please keep in splint on at all times. You sling as needed. You may elevate and ice. This may or may not require surgery please follow-up with orthopedic *Continue to take medications as directed [place] 1 tablet every 6 hours if needed for severe pain *Follow up with your primary care provider in 2-3 days or call [phone] Call orthopedics tomorrow to schedule follow-up appointment *Return to ER if you should have increasing pain swelling numbness tingling weak ness or any new, worsening or concerning symptoms CONTROLLED SUBSTANCE DISCHARGE (Narcotoic/benzodiazepine/Flexeril/Phenergan) 1. You have been prescribed narcotic medications, it does have acetamino phen/Tylenol/paracetamol in it, DO NOT TAKE MORE THAN 4,00mg in 24 hours of Tylenol. TRAMADOL DOES NOT CONTAIN TYLENOL 2. Please understand that we cannot provide further refills of narcotics, rani zodiazepines or controlled substances through the ED and her pain management will need to be through your provider. 3. While on these medications you cannot drive or operate heavy machinery. 4. You cannot sign legal documents or perform any duties such as this. 5. As long as you're taking opiate pain medications he should also be taking a stool softener such as Colace, Dulcolax, MiraLAX or prune juice, to help avoid constipation. Prescriptions: New hydrocodone-acetaminophen 5-325 mg tablet 1 tab PO Q6H PRN (Reason: pain) Qty: 10 0RF No Action multivitamin [Daily Multi-Vitamin] Tablet 1 tab PO DAILY Patient Comments: X[employer] Plus [employer] duloxetine 60 mg capsule,delayed release(DR/EC) 60 mg PO QDAY Qty: 90 3RF clobetasol 0.05 % ointment 1 applic topical BEDTIME Qty: 15 0RF Rx Instructions: Use nightly for 2 weeks then 2x/week estradiol 0.01 % (0.1 mg/gram) cream See Rx Instructions .ROUTE .COMPLEX Qty: 42.5 0RF Dose Instruction: Insert 0.5 g intravaginally nightly for one week then once or twice weekly Rx Instructions: Insert 0.5 g intravaginally nightly for one week then once or twice weekly gabapentin 400 mg capsule See Rx Instructions .ROUTE .COMPLEX Qty: 90 1RF Dose Instruction: TAKE ONE CAPSULE BY MOUTH NIGHTLY AT BEDTIME. Rx Instructions: TAKE ONE CAPSULE BY MOUTH NIGHTLY AT BEDTIME. Referrals: [facility] [Provider Group] Tracey Joseph DO [Primary Care Provider] - Stand Alone Forms: Patient Portal/API
[2023-02-27] MEDS: HYDROCODONE/ACET 5/325 TABLET 1 TAB PO (15:05)
== END 2023-02-27 15:56 | disposition home or self-care (01) ==
PROVIDERS: Emergency Provider Emergency Medicine; Family Provider Family Medicine; PCP Family Medicine
DX: S52.501A Unspecified fracture of the lower end of right radius, initial encounter for closed fracture (principal); W01.0XXA Fall on same level from slipping, tripping and stumbling without subsequent striking against object, initial encounter
CPT/HCPCS: 29125; 73110; 99283

== ENCOUNTER 2023-03-04 09:59 | Day surgery (SDC) | payer OTHER, MEDICAID, SELFPAY ==
[2023-03-02 15:13] VITALS: BMI 27.4
[2023-03-04] VITALS (9 sets, daily range): BP systolic 96–116; BP diastolic 50–80; PULSE 81–92; RESP 13–19; TEMP 35.7–36.3; O2SAT 92–99; BMI 27.4
[2023-03-04] MEDS: LACTATED RINGERS 1,000 ML 42 ML IV ×2 (10:25→12:01)
--- NOTE | 2023-03-04 10:55 | PM.PREOP ---
Pre-operative Note Interval Note History & Physical reviewed/Exam performed by Physician: Yes Changes to H&P: No
--- NOTE | 2023-03-04 11:09 | P.OP_ITS ---
Operative Date/Time/Diagnoses Date of procedure: 03/04/23 Time of procedure: 11:09 Pre-op diagnosis: Intra-articular distal radius fracture right Post-op diagnosis: same Procedure & Clinicians Procedure: Open reduction internal fixation comminuted intra-articular distal radius fracture CPT code 17979, right Same procedure as scheduled: Yes Indications: Patient is a 62-year-old right-hand dominant female who sustained a fall onto an outstretched right hand and a comminuted intra-articular distal radius fracture. She was indicated for surgical fixation due to her displaced comminuted intra- articular distal radius fracture to help reduce the risks associated with posttraumatic arthritis and promote early mobilization. The patient had no evidence of acute carpal tunnel syndrome. The risks and benefits of the procedure have been discussed with the patient and given the opportunity to ask questions. The risks of surgery include but are not limited to infection, malunion, nonunion, persistence of pain, damage to nerves and blood vessels, posttraumatic arthritis, DVT, PE, coardiopulmonary complications and . The patient expressed a thorough understanding of the risks and benefits of surgery and has elected to proceed. Consent was signed. Surgeon: Petrona Mauro Click Yes if Unassisted: Yes Anesthesia Type: General and Local Operative Notes Findings: Comminuted intra-articular right distal radius fracture Closure Type: primary Specimen(s): none sent Prosthetic devices, grafts, tissues, transplants, or devices: Arthrex standard 3 hole volar distal locking plate right with distal locking screws and proximal 3.5 nonlocking screws and 1x3.5 locking screw in the shaft Estimated Blood Loss (mL): 10 Blood products transfused: none Tourniquet time (min): 43 Procedure in detail: Patient sustained a displaced distal radius fracture was indicated for operative reduction fixation to prevent malunion and prolonged function, loss of motion, wrist arthritis. The risks benefits and alternatives to procedure were discussed at length with the patient expressed understanding. These included but were not limited to bleeding, infection, damage to nerves, prominent hardware, pain, malunion, nonunion, blood clot, pulmonary embolism, and cardiovascular risk associated with general anesthesia. Consent was signed. The patient was seen in the site of surgery was marked in the preoperative area. The patient was then brought to the operating room placed on the operative table in the supine position. Hand table was placed on the operative side. General anesthesia was administered. SCDs were on the legs and all bony prominence were padded. A well-padded brachial tourniquet was placed. A formal time-out procedure was called confirming the patient's side and site of surgery administration of preoperative antibiotics and presence of consent. All agreed. The operative extremity was prepped and draped in the standard sterile fashion. An Esmarch was used for exsanguination and the brachial tourniquet was raised to 250 mm of mercury. Standard FCR approach to the wrist was drawn in the incision made. The FCR was exposed. The sheath was opened and the tendon was retracted ulnar protect the palmar cutaneous branch of the median nerve. Floor of the FCR was opened to expose the deep muscles. The FPL was retracted ulnar and the pronator quadratus was released from the radial border and reflected ulnar to expose the distal radius and distal fracture. Fracture was disimpacted and cleaned, this was an intra-articular distal radius fracture with comminution.. The fracture was reduced with traction flexion ulnar deviation. An 045 K-wire was advanced percutaneously from the radial styloid to the metaphysis to hold the reduction. Reduction was checked fluoroscopy and radial inclination/alignment and volar tilt was recreated. Three hole standard Arthrex volar locking plate was selected and positioned and provisionally fixed with K- wires. Once this was satisfactory, nonlocking 3.5 screws placed in the oblong hole and secured. Distal screws were then placed with locking screws. These were placed carefully not to penetrate the dorsal cortex. Once this was completed and checked for prominence the final shaft screws were placed. Again with care to avoid prominence. Final intraoperative images were obtained reviewed demonstrating no evidence of hardware prominence. Wrist motion was checked and was full and maintained and stable DRUJ. The wound was then irrigated and closed in layers. Hemostasis was achieved and the tourniquet was released prior to closing. 3- 0 Vicryl was used deep and subcutaneous 4-0 Monocryl subcutaneous and 3 O nylon in the skin. Sterile dressings with a volar splint were applied. There no immediate complications. Surgical counts were correct. The patient tolerated the procedure well was taken recovery room. Complications: none Post-operative Condition: stable Disposition: PACU Plan for aftercare: PACU. Finger range of motion as tolerated. Full elbow range of motion. 2 lb weight limit. Follow up in 2 weeks. Splint clean dry and intact.
[2023-03-04] MEDS: CEFAZOLIN 2 GM/100 ML PREMIX 100 ML IV (11:10)
--- NOTE | 2023-03-04 11:42 | SUR.OPER ---
Supine on padded OR bed, head on pillow, non operative arm secured on padded arm board at <90 degrees abduction, operative arm on hand table, legs uncrossed, safety belt at thigh, tape over blanket over lower legs.
[2023-03-04] MEDS: fentaNYL 100 MCG/2 ML INJ IV ×2 (12:37→12:48)
[2023-03-04] MEDS: OXYCODONE/ACETAMINOPHEN 5/325 TABLET 1 TAB PO ×2 (12:45→13:16)
== END 2023-03-04 13:40 | disposition home or self-care (01) ==
PROVIDERS: Family Provider Family Medicine; PCP Family Medicine; Referring Provider Orthopaedic Surgery Foot and Ankle Surgery; Visit Provider Orthopaedic Surgery Foot and Ankle Surgery
PROC: (CPT 25609; principal; 2023-03-04 11:45)
DX: S52.571A Other intraarticular fracture of lower end of right radius, initial encounter for closed fracture (principal); W01.0XXA Fall on same level from slipping, tripping and stumbling without subsequent striking against object, initial encounter; Y99.2 Volunteer activity
CPT/HCPCS: 25609; C1713; J0690; J1100; J1885; J2250; J2405; J2704; J3010

== ENCOUNTER → 2023-03-22 09:35 | Outpatient (CLI) | payer OTHER, MEDICAID, SELFPAY ==
[2023-03-22 10:44] LABS: Cholesterol 229 mg/dL (140-199); HDL Cholesterol 67 mg/dL (40-60); LDL Cholesterol Calculated 129 mg/dL (<100); Triglycerides 167 mg/dL (35-150)
== END ==
PROVIDERS: Family Provider Family Medicine; PCP Family Medicine; Referring Provider Family Medicine; Visit Provider Family Medicine
DX: E78.5 Hyperlipidemia, unspecified (principal)
CPT/HCPCS: 36415; 80061

== ENCOUNTER → 2023-04-11 11:51 | Outpatient (CLI) | payer OTHER, MEDICAID, SELFPAY ==
--- NOTE | 2023-04-11 | DI.MG.S_ITS ---
UNILATERAL LEFT DIGITAL DIAGNOSTIC MAMMOGRAM 3D/2D SHORT-TERM FOLLOW-UP: 04/11/2023 CLINICAL: Short term follow up for the left breast. Comparison is made to exams dated: 07/26/2022 mammogram, 07/13/2022 mammogram, and 07/17/2020 mammogram - [facility]. The left breast is heterogeneously dense, which may obscure small masses (category c / 51-75% glandular tissue). No significant masses, calcifications, or other findings are seen in the breast. There has been no significant interval change. IMPRESSION: NEGATIVE There is no mammographic evidence of malignancy. A 1 year screening mammogram is recommended. Based on the Tyrer Cuzick model (a risk assessment model) the patient's lifetime risk is 9.9% and her 10 year risk is 4.4%. According to the ACR, ACS, and NCCN guidelines, an annual breast MRI exam along with mammogram is recommended if the patient's lifetime risk is 20% or greater. This exam was interpreted at Station ID: [id number]. NOTE: For mammograms, a report in lay terms will be sent to the patient. Approximately 15% of breast malignancies will not be visualized mammographically. In the management of a palpable breast mass, a negative mammogram must not discourage biopsy of a clinically suspicious lesion. Electronically Signed By: Saloni hong/soraya:04/11/2023 12:28:07 letter sent: Normal Exam ACR BI-RADS Category 1: Negative [id number]
== END ==
PROVIDERS: Family Provider Family Medicine; PCP Family Medicine; Referring Provider Family Medicine; Visit Provider Family Medicine
DX: R92.8 Other abnormal and inconclusive findings on diagnostic imaging of breast (principal)
CPT/HCPCS: 77065; G0279

== ENCOUNTER 2023-07-18 15:00 | Outpatient (RCR) | payer OTHER, MEDICAID, SELFPAY ==
--- NOTE | 2023-05-04 08:23 | PT.OIE ---
Current Diagnoses Pain in right shoulder (05/04/23) Unspecified disorder of synovium and tendon, right shoulder (05/04/23) Weakness (05/04/23) Edema, unspecified (05/04/23) Other intraarticular fracture of lower end of right radius, subsequent encounter for closed fracture with routine healing (05/04/23) Past Medical History (Last Reviewed 04/01/23 @ 14:00 by Tracey Joseph DO) Basal cell carcinoma Chicken pox Depression (~1998) Fibromyalgia (~2015) Generalized anxiety disorder Mumps (~1970) Overweight (BMI 25.0-29.9) Tinnitus (~2016) Past Surgical History (Last Updated 04/01/23 @ 14:01 by Tracey Joseph DO) Anesthesia H/O wrist surgery History of endometrial ablation (~2003) Status post knee surgery (~2002) Visit Care Team Role Provider Type Tracey Joseph DO Attending Provider Physician Family Provider Primary Care Provider Referring Provider Specialty: Family Practice Address: [address] [place] [address] Email: [email or web address] Physical Therapy Initial Evaluation PT-OP-A Visit Information Start: 05/03/23 16:34 Freq: Status: Active Protocol: Document 05/04/23 15:00 [facility] (Rec: 05/04/23 16:07 [facility] [id number]) Out-Patient Physical Therapy Visit Information Visit Information Visit Type Initial Evaluation Visit Start Time 15:00 Visit Stop Time 15:55 Total Visit Minutes 55 Visit Number 1 Evaluation Information Evaluation Date 05/04/23 Precautions Precautions right wrist fracture s/p ORIF PT-OP-B Current Condition Start: 05/03/23 16:34 Freq: Status: Active Protocol: Document 05/04/23 15:00 [facility] (Rec: 05/04/23 16:07 [facility] [id number]) Current Condition History of Current Condition Onset Date 02/25/23 Current Complaints painful and limited function right wrist and shoulder History of Current Condition Fractured right wrist s/p fall 02/25/23. ORIF 03/04/[address] Mauro with plate and 8 screws. . Only precaution at recent appointment was advised [place] which [place] where she [place] herself. Has been doing exercise given by Dr. Mauro, did not bring today. Also c/o right shoulder pain since fall, no imaging or treatment yet. Difficulty getting dressed, excrutiating pain if tries to lift overhead or behind back. Using heating pad on shoulder, ice on wrist especially by the end of the day. Some numbness base of left thumb, when wakes up tingling in hand. x-ray looked good. Patient is right handed. Prior Treatments and Tests ORIF right wrist no imaging right shouldr Future Testing and Treatments Planned follow-up with Dr. Mauro Treatment Goals Patient/Caregiver Goals improve right shoulder and right wrist fuction Prior Functional Status Baseline Function- ADL's Independent Baseline Function- Mobility Independent Baseline Function- Work/School retired Baseline Function- Recreation/Hobbies unrestricted Current Functional Impairments (Reported) Functional Limitations- ADL's painful, can't reach overhead or behind her back, lack of full substance abuse services director, lack of full wrist ROM Functional Limitations- Recreation/ unable Hobbies PT-OP-C Subjective Start: 05/03/23 16:34 Freq: Status: Active Protocol: Document 05/04/23 15:00 [facility] (Rec: 05/04/23 16:07 [facility] [id number]) OP-PT Pain Assessment Pain Assessment Grid Paper Pain Assessment Grid Completed Yes PT-OP-H Neuro Start: 05/03/23 16:34 Freq: Status: Active Protocol: Document 05/04/23 15:00 [facility] (Rec: 05/04/23 16:07 [facility] [id number]) Sensation Evaluation Gross Sensation Gross Sensation Right LE Impaired Sensation Description Numbness,Tingling PT-OP-K Range of Motion Start: 05/03/23 16:34 Freq: Status: Active Protocol: Document 05/04/23 15:00 [facility] (Rec: 05/04/23 16:07 [facility] [id number]) Cervical Spine Range of Motion Cervical Spine Active Comments WFL Shoulder Goniometric Range of Motion Shoulder Right Shoulder ROM WFL Yes Flexion 144 Extension 10 Abduction 90 Horizontal Abduction 65 Horizontal Adduction 45 External Rotation at 90 degrees 45 Abduction Internal Rotation Behind Back (text) L4 Comments positive belly press test left Shoulder ROM WFL Yes Wrist Goniometric Range of Motion Wrist Right Wrist ROM WFL No Flexion Active (degrees) 39 Flexion Passive (degrees) 47 Extension Active (degrees) 46 Extension Passive (degrees) 61 Ulnar Deviation Active (degrees) 15 Ulnar Deviation Passive (degrees) 21 Radial Deviation Active (degrees) 4 Radial Deviation Passive (degrees) 7 Left Wrist ROM WFL Yes ROM Limitations Wrist Limitations of Range of Motion Bony Restriction,Pain,Swelling Finger Goniometric Range of Motion Finger ROM Limitations Finger ROM Limitations Muscle Weakness,Swelling Thumb Goniometric Range of Motion Thumb ROM Limitations Thumb Range of Motion Limitations Muscle Weakness,Pain,Swelling PT-OP-M Strength Start: 05/03/23 16:34 Freq: Status: Active Protocol: Document 05/04/23 15:00 [facility] (Rec: 05/04/23 16:07 [facility] [id number]) Shoulder Strength Shoulder Manual Muscle Testing Right Flexion 3+ Fair+ Extension 3+ Fair+ Abduction (C5) 3+ Fair+ External Rotation 3- Fair- Internal Rotation 2+ Poor+ Comments painful all resisted motions, most internal rotation Left Flexion 5 Normal Extension 5 Normal Adduction 5 Normal External Rotation 4+ Good+ Internal Rotation 5 Normal Elbow/Forearm Strength Elbow and Forearm Manual Muscle Testing Right Flexion (C6) 4 Good Extension (C7) 4 Good Pronation 3+ Fair+ Supination 3+ Fair+ Left Flexion (C6) 5 Normal Extension (C7) 5 Normal Pronation 5 Normal Supination 5 Normal Wrist Strength Wrist Manual Muscle Testing Right Comments no MMT due to recent surgery, pain, lack of full active motion Left Flexion (C7) 5 Normal Extension (C6) 5 Normal Ulnar Deviation 5 Normal Radial Deviation 5 Normal Finger/Thumb Strength Finger Manual Muscle Testing Right Flexion (fingers C8) 3- Fair- Extension (thumb C8) 3+ Fair+ Adduction 3+ Fair+ Abduction (fingers T1) 3+ Fair+ Left Flexion (fingers C8) 5 Normal Extension (thumb C8) 5 Normal Adduction 5 Normal Abduction (fingers T1) 5 Normal Hand Floral Department Specialist/Pinch Strength Hand Strength Right Floral Department Specialist (lbs) 5 Left Floral Department Specialist (lbs) 42 PT-OP-T Assessment and Plan Start: 05/03/23 16:34 Freq: Status: Active Protocol: Document 05/04/23 15:00 [facility] (Rec: 05/04/23 16:07 [facility] [id number]) Physical Therapy Assessment Rehab Potential Rehabilitation Potential Good Evaluation Complexity Number of Personal Factors/Comorbidities 1-2 Number of Body Systems Impaired 3 Clinical Presentation at Evaluation Evolving Impairments Impairments Edema,Functional Activities, ROM,Soft Tissue Mobility, Strength Other Impairments wrist circumfence 17.4 left 18.9 left. Goals Three Impairment soft tissue mobility and edema Impairment Decreased scar mobility and moderate edema right wrist and hand Short Term Goal (STG) patient will be taught scar massage and edema management for her right wrist and hand STG Duration 06/07/23 Custodial Goal (LTG) Improve scar mobility to WNL and decrease edema to minimal level for improved right wrist and hand function LTG Duration 08/05/23 Two Impairment activity tolerance Impairment unable to reach overhead or behind her back right UE, and unable to use right hand to perform functional tasks such as lift, carry, or open jars Retort Forker Goal (LTG) Patient to improve functional use of her right UE to allow her to reach overhead, behind her back and perform all other usual ADL's and functional tasks right UE. One Impairment ROM and strength Impairment Lacking full AROM and strength right wrist,hand, and shoulder Short Term Goal (STG) Patient to be instructed in individualized and progressive HEP for the purposes of right shoulder,wrist, and hand ROM and strengthening. STG Duration 06/07/23 Custodial Goal (LTG) Patient to be independent and compliant with HEP and demonstrate improvement in right UE ROM and strength to WFL including right substance abuse services director to at least 45# LTG Duration 08/04/23 Assessment Summary Assessment Patient presents to PT s/p fall 02/25/23 with c/o right wrist and shoulder pain. She suffered fractured right wrist and underwent ORIF 02/25/23. No imaging yet to right shoulder. At this time she presents with swellling right wrist and hand, decreased ROM, strength and function in wrist, forearm, and hand, and pain right shoulder with signs and symptoms consistent with impingement and RC involvement . Right wrist substance abuse services director (patient is right handed) is 5# as compared with 42# on left. Her wrist is moderatelyl swollen and she has minimal functional use. She is unable to reach overhead or behind her back due to shoulder pain. She would benefit from PT to improve ROM, strength, and function in right wrist/hand and shoulder. She is highly motivated. POC was discussed and she was in agreement. Physical Therapy Plan Frequency and Duration Frequency of Treatment 2x/Week Duration of treatment (weeks) 8 Plan of Care Start Date 05/04/23 Plan of Care End Date 07/04/23 Therapeutic Interventions Therapeutic Interventions Home Exercise Program,Manual Therapy,Patient/Caregiver Education,Self-Care/Home Management,Soft Tissue Mobilization,Taping, Therapeutic Activities, Therapeutic Exercises Modalities Cold Pack/Ice Massage,Electric Stimulation,Hot Packs, Infrared Therapy,Iontophoresis ,Ultrasound Next Visit Focus/Plan Next Note Type Treatment Note Next Visit Plan Review HEP, gentle progression of ROM and strengthening exercises as tolerated. Modalities and manual therapy as needed.
--- NOTE | 2023-05-04 08:23 | PT.OPPOC ---
Physical, Occupational & Speech Therapy At [facility] Current Diagnoses Pain in right shoulder (05/04/23) Unspecified disorder of synovium and tendon, right shoulder (05/04/23) Weakness (05/04/23) Edema, unspecified (05/04/23) Other intraarticular fracture of lower end of right radius, subsequent encounter for closed fracture with routine healing (05/04/23) Visit Care Team Role Provider Type Tracey Joseph DO Attending Provider Physician Family Provider Primary Care Provider Referring Provider Specialty: Family Practice Address: [address] [place] [address], [id number] Email: [email or web address] Plan Of Care PT-OP-T Assessment and Plan Start: 05/03/23 16:34 Freq: Status: Active Protocol: Document 05/04/23 15:00 [facility] (Rec: 05/04/23 16:07 [facility] [id number]) Physical Therapy Assessment Rehab Potential Rehabilitation Potential Good Evaluation Complexity Number of Personal Factors/Comorbidities 1-2 Number of Body Systems Impaired 3 Clinical Presentation at Evaluation Evolving Impairments Impairments Edema,Functional Activities, ROM,Soft Tissue Mobility, Strength Other Impairments wrist circumfence 17.4 left 18.9 left. Goals Three Impairment soft tissue mobility and edema Impairment Decreased scar mobility and moderate edema right wrist and hand Short Term Goal (STG) patient will be taught scar massage and edema management for her right wrist and hand STG Duration 06/07/23 Coagulator Goal (LTG) Improve scar mobility to WNL and decrease edema to minimal level for improved right wrist and hand function LTG Duration 08/05/23 Two Impairment activity tolerance Impairment unable to reach overhead or behind her back right UE, and unable to use right hand to perform functional tasks such as lift, carry, or open jars Coagulator Goal (LTG) Patient to improve functional use of her right UE to allow her to reach overhead, behind her back and perform all other usual ADL's and functional tasks right UE. One Impairment ROM and strength Impairment Lacking full AROM and strength right wrist,hand, and shoulder Short Term Goal (STG) Patient to be instructed in individualized and progressive HEP for the purposes of right shoulder,wrist, and hand ROM and strengthening. STG Duration 06/07/23 Coagulator Goal (LTG) Patient to be independent and compliant with HEP and demonstrate improvement in right UE ROM and strength to WFL including right manager erp to at least 45# LTG Duration 08/04/23 Assessment Summary Assessment Patient presents to PT s/p fall 02/25/23 with c/o right wrist and shoulder pain. She suffered fractured right wrist and underwent ORIF 02/25/23. No imaging yet to right shoulder. At this time she presents with swellling right wrist and hand, decreased ROM, strength and function in wrist, forearm, and hand, and pain right shoulder with signs and symptoms consistent with impingement and RC involvement . Right wrist manager erp (patient is right handed) is 5# as compared with 42# on left. Her wrist is moderatelyl swollen and she has minimal functional use. She is unable to reach overhead or behind her back due to shoulder pain. She would benefit from PT to improve ROM, strength, and function in right wrist/hand and shoulder. She is highly motivated. POC was discussed and she was in agreement. Physical Therapy Plan Frequency and Duration Frequency of Treatment 2x/Week Duration of treatment (weeks) 8 Plan of Care Start Date 05/04/23 Plan of Care End Date 07/04/23 Therapeutic Interventions Therapeutic Interventions Home Exercise Program,Manual Therapy,Patient/Caregiver Education,Self-Care/Home Management,Soft Tissue Mobilization,Taping, Therapeutic Activities, Therapeutic Exercises Modalities Cold Pack/Ice Massage,Electric Stimulation,Hot Packs, Infrared Therapy,Iontophoresis ,Ultrasound Next Visit Focus/Plan Next Note Type Treatment Note Next Visit Plan Review HEP, gentle progression of ROM and strengthening exercises as tolerated. Modalities and manual therapy as needed. Plan of Care Dates Plan of Care Start Date 05/04/23 Plan of Care End Date 07/04/23 Electronically Signed by: Liss Charles PT 05/08/23 0823 If you are in agreement with this Plan of Care, please return a signed and dated copy. I have reviewed this Plan of Care and certify that the skilled therapy services above are required to meet the patient?s needs. Physician Signature Date Printed Name and Credentials Clinical Instructor Signature Printed Name and Credentials
--- NOTE | 2023-05-09 15:46 | PT.OTN ---
Current Diagnoses Pain in right shoulder (05/09/23) Unspecified disorder of synovium and tendon, right shoulder (05/09/23) Weakness (05/09/23) Edema, unspecified (05/09/23) Other intraarticular fracture of lower end of right radius, subsequent encounter for closed fracture with routine healing (05/09/23) Physical Therapy Treatment Note PT-OP-A Visit Information Start: 05/03/23 16:34 Freq: Status: Active Protocol: Document 05/09/23 09:34 [facility] (Rec: 05/09/23 10:21 [facility] [id number]) Out-Patient Physical Therapy Visit Information Visit Information Visit Type Treatment Note Visit Start Time 09:34 Visit Stop Time 10:25 Total Visit Minutes 50 Visit Number 2 Precautions Precautions right wrist fracture s/p ORIF PT-OP-B Current Condition Start: 05/03/23 16:34 Freq: Status: Active Protocol: Document 05/04/23 15:00 [facility] (Rec: 05/04/23 16:07 [facility] [id number]) Current Condition History of Current Condition Onset Date 02/25/23 Current Complaints painful and limited function right wrist and shoulder History of Current Condition Fractured right wrist s/p fall 02/25/23. ORIF 03/04/[address] Mauro with plate and 8 screws. . Only precaution at recent appointment was advised not to go out on rocks at [facility] which was where she injured herself. Has been doing exercise given by Dr. Mauro, did not bring today. Also c/o right shoulder pain since fall, no imaging or treatment yet. Difficulty getting dressed, excrutiating pain if tries to lift overhead or behind back. Using heating pad on shoulder, ice on wrist especially by the end of the day. Some numbness base of left thumb, when wakes up tingling in hand. x-ray looked good. Patient is right handed. Prior Treatments and Tests ORIF right wrist no imaging right shouldr Future Testing and Treatments Planned follow-up with Dr. Mauro Treatment Goals Patient/Caregiver Goals improve right shoulder and right wrist fuction Prior Functional Status Baseline Function- ADL's Independent Baseline Function- Mobility Independent Baseline Function- Work/School retired Baseline Function- Recreation/Hobbies unrestricted Current Functional Impairments (Reported) Functional Limitations- ADL's painful, can't reach overhead or behind her back, lack of full sailing master, lack of full wrist ROM Functional Limitations- Recreation/ unable Hobbies PT-OP-C Subjective Start: 05/03/23 16:34 Freq: Status: Active Protocol: Document 05/09/23 09:34 [facility] (Rec: 05/09/23 10:21 [facility] [id number]) OP-PT Subjective Patient Comments Patient Comments HEP helpful, likes theraputty. OP-PT Pain Assessment Pain Assessment Grid Paper Pain Assessment Grid Completed Yes PT-OP-H Neuro Start: 05/03/23 16:34 Freq: Status: Active Protocol: Document 05/04/23 15:00 [facility] (Rec: 05/04/23 16:07 [facility] [id number]) Sensation Evaluation Gross Sensation Gross Sensation Right LE Impaired Sensation Description Numbness,Tingling PT-OP-K Range of Motion Start: 05/03/23 16:34 Freq: Status: Active Protocol: Document 05/04/23 15:00 [facility] (Rec: 05/04/23 16:07 [facility] [id number]) Cervical Spine Range of Motion Cervical Spine Active Comments WFL Shoulder Goniometric Range of Motion Shoulder Right Shoulder ROM WFL Yes Flexion 144 Extension 10 Abduction 90 Horizontal Abduction 65 Horizontal Adduction 45 External Rotation at 90 degrees 45 Abduction Internal Rotation Behind Back (text) L4 Comments positive belly press test left Shoulder ROM WFL Yes Wrist Goniometric Range of Motion Wrist Right Wrist ROM WFL No Flexion Active (degrees) 39 Flexion Passive (degrees) 47 Extension Active (degrees) 46 Extension Passive (degrees) 61 Ulnar Deviation Active (degrees) 15 Ulnar Deviation Passive (degrees) 21 Radial Deviation Active (degrees) 4 Radial Deviation Passive (degrees) 7 Left Wrist ROM WFL Yes ROM Limitations Wrist Limitations of Range of Motion Bony Restriction,Pain,Swelling Finger Goniometric Range of Motion Finger ROM Limitations Finger ROM Limitations Muscle Weakness,Swelling Thumb Goniometric Range of Motion Thumb ROM Limitations Thumb Range of Motion Limitations Muscle Weakness,Pain,Swelling PT-OP-M Strength Start: 05/03/23 16:34 Freq: Status: Active Protocol: Document 05/04/23 15:00 [facility] (Rec: 05/04/23 16:07 [facility] [id number]) Shoulder Strength Shoulder Manual Muscle Testing Right Flexion 3+ Fair+ Extension 3+ Fair+ Abduction (C5) 3+ Fair+ External Rotation 3- Fair- Internal Rotation 2+ Poor+ Comments painful all resisted motions, most internal rotation Left Flexion 5 Normal Extension 5 Normal Adduction 5 Normal External Rotation 4+ Good+ Internal Rotation 5 Normal Elbow/Forearm Strength Elbow and Forearm Manual Muscle Testing Right Flexion (C6) 4 Good Extension (C7) 4 Good Pronation 3+ Fair+ Supination 3+ Fair+ Left Flexion (C6) 5 Normal Extension (C7) 5 Normal Pronation 5 Normal Supination 5 Normal Wrist Strength Wrist Manual Muscle Testing Right Comments no MMT due to recent surgery, pain, lack of full active motion Left Flexion (C7) 5 Normal Extension (C6) 5 Normal Ulnar Deviation 5 Normal Radial Deviation 5 Normal Finger/Thumb Strength Finger Manual Muscle Testing Right Flexion (fingers C8) 3- Fair- Extension (thumb C8) 3+ Fair+ Adduction 3+ Fair+ Abduction (fingers T1) 3+ Fair+ Left Flexion (fingers C8) 5 Normal Extension (thumb C8) 5 Normal Adduction 5 Normal Abduction (fingers T1) 5 Normal Hand Aged Or Disabled Care Worker/Pinch Strength Hand Strength Right Aged Or Disabled Care Worker (lbs) 5 Left Aged Or Disabled Care Worker (lbs) 42 PT-OP-Q Treatments Start: 05/03/23 16:34 Freq: Status: Active Protocol: Document 05/09/23 09:34 [facility] (Rec: 05/09/23 10:21 [facility] [id number]) Therapeutic Exercises Supine Exercises wand Supine Exercise Name shoulder flex and ER Equipment Used wand Reps/Minutes 10x ea Sidelying Exercises open book Reps/Minutes 5x Sitting Exercises pulleys Sitting Exercise Name flexion and scaption Equipment Used ball mid thoracic spine Reps/Minutes 10x thera bar Sitting Exercise Name fwd/bck, side, twist Equipment Used red Reps/Minutes 10x ea stick with rope Sitting Exercise Name rolling up and down Reps/Minutes 5x wrist alphabet writing Reps/Minutes 1 min wrist radial/ulnar dev Reps/Minutes 10x wrist flex/ext Reps/Minutes 10x, overpressure. Standing Exercises shoulder ER Equipment Used L1 TB Reps/Minutes 10x shoulder IR Equipment Used L1 TB Reps/Minutes 10x row Equipment Used L1 TB Reps/Minutes 10x Manual Therapy Treatment Soft Tissue Mobilization periscap Body Location subscap release Mobilization Type Sustained Pressure Intensity/Depth mod Body Position Sidelying cross friction Body Location RC right shoulder Intensity/Depth mod Body Position Supine Joint Mobilizations scapula Direction protr,retr Grade III Body Position Sidelying Self-Care/Home Management Treatment Education Patient Education Home Exercise Program PT-OP-R Modalities Start: 05/03/23 16:34 Freq: Status: Active Protocol: Document 05/09/23 09:34 [facility] (Rec: 05/09/23 15:45 [facility] [id number]) Hot Pack/Cold Pack Treatment Hot Pack Location right shoulder and wrist Patient Position Hooklying Treatment Duration (minutes) 15 Patient Tolerance Good PT-OP-T Assessment and Plan Start: 05/03/23 16:34 Freq: Status: Active Protocol: Document 05/09/23 09:34 [facility] (Rec: 05/09/23 10:21 [facility] [id number]) Physical Therapy Assessment Impairments Impairments Edema,Functional Activities, ROM,Soft Tissue Mobility, Strength Other Impairments wrist circumfence 17.4 left 18.9 left. Goals Three Impairment soft tissue mobility and edema Impairment Decreased scar mobility and moderate edema right wrist and hand Short Term Goal (STG) patient will be taught scar massage and edema management for her right wrist and hand STG Duration 06/07/23 Retirement Goal (LTG) Improve scar mobility to WNL and decrease edema to minimal level for improved right wrist and hand function LTG Duration 08/05/23 Two Impairment activity tolerance Impairment unable to reach overhead or behind her back right UE, and unable to use right hand to perform functional tasks such as lift, carry, or open jars Retirement Goal (LTG) Patient to improve functional use of her right UE to allow her to reach overhead, behind her back and perform all other usual ADL's and functional tasks right UE. One Impairment ROM and strength Impairment Lacking full AROM and strength right wrist,hand, and shoulder Short Term Goal (STG) Patient to be instructed in individualized and progressive HEP for the purposes of right shoulder,wrist, and hand ROM and strengthening. STG Duration 06/07/23 Towel Sewer Goal (LTG) Patient to be independent and compliant with HEP and demonstrate improvement in right UE ROM and strength to WFL including right sailing master to at least 45# LTG Duration 08/04/23 Assessment Summary Assessment Good progress, patient able to form full fist, good compliance to HEP. Swelling reduced left hand and wrist. Patient to consider obtaining pulleys for home use. Physical Therapy Plan Frequency and Duration Frequency of Treatment 2x/Week Duration of treatment (weeks) 8 Plan of Care Start Date 05/04/23 Plan of Care End Date 07/04/23 Therapeutic Interventions Therapeutic Interventions Home Exercise Program,Manual Therapy,Patient/Caregiver Education,Self-Care/Home Management,Soft Tissue Mobilization,Taping, Therapeutic Activities, Therapeutic Exercises Modalities Cold Pack/Ice Massage,Electric Stimulation,Hot Packs, Infrared Therapy,Iontophoresis ,Ultrasound Next Visit Focus/Plan Next Note Type Treatment Note
--- NOTE | 2023-05-11 16:41 | PT.OTN ---
Current Diagnoses Pain in right shoulder (05/11/23) Unspecified disorder of synovium and tendon, right shoulder (05/11/23) Weakness (05/11/23) Edema, unspecified (05/11/23) Other intraarticular fracture of lower end of right radius, subsequent encounter for closed fracture with routine healing (05/11/23) Physical Therapy Treatment Note PT-OP-A Visit Information Start: 05/03/23 16:34 Freq: Status: Active Protocol: Document 05/11/23 09:29 [facility] (Rec: 05/11/23 10:30 [facility] [id number]) Out-Patient Physical Therapy Visit Information Visit Information Visit Type Treatment Note Visit Start Time 09:31 Visit Stop Time 10:18 Total Visit Minutes 47 Visit Number 3 Precautions Precautions right wrist fracture s/p ORIF PT-OP-B Current Condition Start: 05/03/23 16:34 Freq: Status: Active Protocol: Document 05/04/23 15:00 [facility] (Rec: 05/04/23 16:07 [facility] [id number]) Current Condition History of Current Condition Onset Date 02/25/23 Current Complaints painful and limited function right wrist and shoulder History of Current Condition Fractured right wrist s/p fall 02/25/23. ORIF 03/04/[address] Mauro with plate and 8 screws. . Only precaution at recent appointment was advised not to go out on rocks at [facility] which was where she injured herself. Has been doing exercise given by Dr. Mauro, did not bring today. Also c/o right shoulder pain since fall, no imaging or treatment yet. Difficulty getting dressed, excrutiating pain if tries to lift overhead or behind back. Using heating pad on shoulder, ice on wrist especially by the end of the day. Some numbness base of left thumb, when wakes up tingling in hand. x-ray looked good. Patient is right handed. Prior Treatments and Tests ORIF right wrist no imaging right shouldr Future Testing and Treatments Planned follow-up with Dr. Mauro Treatment Goals Patient/Caregiver Goals improve right shoulder and right wrist fuction Prior Functional Status Baseline Function- ADL's Independent Baseline Function- Mobility Independent Baseline Function- Work/School retired Baseline Function- Recreation/Hobbies unrestricted Current Functional Impairments (Reported) Functional Limitations- ADL's painful, can't reach overhead or behind her back, lack of full mapping engineer, lack of full wrist ROM Functional Limitations- Recreation/ unable Hobbies PT-OP-C Subjective Start: 05/03/23 16:34 Freq: Status: Active Protocol: Document 05/11/23 09:29 [facility] (Rec: 05/11/23 10:30 [facility] [id number]) OP-PT Subjective Patient Comments Patient Comments No new c/o, not sure if she is ready yet for the next level OP-PT Pain Assessment Pain Assessment Grid Paper Pain Assessment Grid Completed Yes PT-OP-H Neuro Start: 05/03/23 16:34 Freq: Status: Active Protocol: Document 05/04/23 15:00 [facility] (Rec: 05/04/23 16:07 [facility] [id number]) Sensation Evaluation Gross Sensation Gross Sensation Right LE Impaired Sensation Description Numbness,Tingling PT-OP-K Range of Motion Start: 05/03/23 16:34 Freq: Status: Active Protocol: Document 05/04/23 15:00 [facility] (Rec: 05/04/23 16:07 [facility] [id number]) Cervical Spine Range of Motion Cervical Spine Active Comments WFL Shoulder Goniometric Range of Motion Shoulder Right Shoulder ROM WFL Yes Flexion 144 Extension 10 Abduction 90 Horizontal Abduction 65 Horizontal Adduction 45 External Rotation at 90 degrees 45 Abduction Internal Rotation Behind Back (text) L4 Comments positive belly press test left Shoulder ROM WFL Yes Wrist Goniometric Range of Motion Wrist Right Wrist ROM WFL No Flexion Active (degrees) 39 Flexion Passive (degrees) 47 Extension Active (degrees) 46 Extension Passive (degrees) 61 Ulnar Deviation Active (degrees) 15 Ulnar Deviation Passive (degrees) 21 Radial Deviation Active (degrees) 4 Radial Deviation Passive (degrees) 7 Left Wrist ROM WFL Yes ROM Limitations Wrist Limitations of Range of Motion Bony Restriction,Pain,Swelling Finger Goniometric Range of Motion Finger ROM Limitations Finger ROM Limitations Muscle Weakness,Swelling Thumb Goniometric Range of Motion Thumb ROM Limitations Thumb Range of Motion Limitations Muscle Weakness,Pain,Swelling PT-OP-M Strength Start: 05/03/23 16:34 Freq: Status: Active Protocol: Document 05/04/23 15:00 [facility] (Rec: 05/04/23 16:07 [facility] [id number]) Shoulder Strength Shoulder Manual Muscle Testing Right Flexion 3+ Fair+ Extension 3+ Fair+ Abduction (C5) 3+ Fair+ External Rotation 3- Fair- Internal Rotation 2+ Poor+ Comments painful all resisted motions, most internal rotation Left Flexion 5 Normal Extension 5 Normal Adduction 5 Normal External Rotation 4+ Good+ Internal Rotation 5 Normal Elbow/Forearm Strength Elbow and Forearm Manual Muscle Testing Right Flexion (C6) 4 Good Extension (C7) 4 Good Pronation 3+ Fair+ Supination 3+ Fair+ Left Flexion (C6) 5 Normal Extension (C7) 5 Normal Pronation 5 Normal Supination 5 Normal Wrist Strength Wrist Manual Muscle Testing Right Comments no MMT due to recent surgery, pain, lack of full active motion Left Flexion (C7) 5 Normal Extension (C6) 5 Normal Ulnar Deviation 5 Normal Radial Deviation 5 Normal Finger/Thumb Strength Finger Manual Muscle Testing Right Flexion (fingers C8) 3- Fair- Extension (thumb C8) 3+ Fair+ Adduction 3+ Fair+ Abduction (fingers T1) 3+ Fair+ Left Flexion (fingers C8) 5 Normal Extension (thumb C8) 5 Normal Adduction 5 Normal Abduction (fingers T1) 5 Normal Hand Clark Driver/Pinch Strength Hand Strength Right Clark Driver (lbs) 5 Left Clark Driver (lbs) 42 PT-OP-Q Treatments Start: 05/03/23 16:34 Freq: Status: Active Protocol: Document 05/11/23 09:29 [facility] (Rec: 05/11/23 10:30 [facility] [id number]) Cardio Equipment Recumbent Elliptical (Showkicker) Duration (Minutes) 5 Resistance 1 Seat Position 7 Therapeutic Exercises Supine Exercises should flex Equipment Used L1 TB, light outward pressure Reps/Minutes 10x Sidelying Exercises sh abd Comments not tolerated shoulder fle Reps/Minutes 5x Comments with manual scap rotation Sitting Exercises pulleys Sitting Exercise Name flexion and scaption Equipment Used ball mid thoracic spine Reps/Minutes 10x thera bar Sitting Exercise Name fwd/bck, side, twist Equipment Used red Reps/Minutes 10x ea stick with rope Sitting Exercise Name rolling up and down Equipment Used 1# Reps/Minutes 3x Standing Exercises wall push-up Reps/Minutes 10x shoulder ext Equipment Used L1 Reps/Minutes 10x shoulder ER Equipment Used L1 TB Reps/Minutes 10x shoulder IR Equipment Used L1 TB Reps/Minutes 10x row Equipment Used L1 TB Reps/Minutes 10x Manual Therapy Treatment Soft Tissue Mobilization periscap Body Location subscap release Mobilization Type Sustained Pressure Intensity/Depth mod Body Position Sidelying cross friction Body Location RC right shoulder Intensity/Depth mod Body Position Supine Joint Mobilizations GH Direction inf Body Position Supine Comments long axis dist Self-Care/Home Management Treatment Education Patient Education Home Exercise Program,Pain Management,Posture Other Education added sh ext and ER with TB PT-OP-R Modalities Start: 05/03/23 16:34 Freq: Status: Active Protocol: Document 05/11/23 09:29 [facility] (Rec: 05/11/23 10:30 [facility] [id number]) Iontophoresis Treatment right shoulder Treatment Medication Dexamethasone (-) Medication Amount (mL) (ml) 1 Medication Dosage 5 mg/ml Treatment Polarity - Treatment Duration (minutes) 3 PT-OP-T Assessment and Plan Start: 05/03/23 16:34 Freq: Status: Active Protocol: Document 05/11/23 09:29 [facility] (Rec: 05/11/23 10:30 [facility] [id number]) Physical Therapy Assessment Impairments Impairments Edema,Functional Activities, ROM,Soft Tissue Mobility, Strength Other Impairments wrist circumfence 17.4 left 18.9 left. Goals Three Impairment soft tissue mobility and edema Impairment Decreased scar mobility and moderate edema right wrist and hand Short Term Goal (STG) patient will be taught scar massage and edema management for her right wrist and hand STG Duration 06/07/23 Wafer Fabricator Goal (LTG) Improve scar mobility to WNL and decrease edema to minimal level for improved right wrist and hand function LTG Duration 08/05/23 Two Impairment activity tolerance Impairment unable to reach overhead or behind her back right UE, and unable to use right hand to perform functional tasks such as lift, carry, or open jars Penitentiary Goal (LTG) Patient to improve functional use of her right UE to allow her to reach overhead, behind her back and perform all other usual ADL's and functional tasks right UE. One Impairment ROM and strength Impairment Lacking full AROM and strength right wrist,hand, and shoulder Short Term Goal (STG) Patient to be instructed in individualized and progressive HEP for the purposes of right shoulder,wrist, and hand ROM and strengthening. STG Duration 06/07/23 Wafer Fabricator Goal (LTG) Patient to be independent and compliant with HEP and demonstrate improvement in right UE ROM and strength to WFL including right mapping engineer to at least 45# LTG Duration 08/04/23 Assessment Summary Assessment Patient making good progress with decreasing edema, improving right hand and wrist function. More improvement wrist ext vs flex. Fair tolerance for progression of shoulder ex. Should get pulleys in the mail today. Trial iontophoresis right shoulder to dec inflammation and pain. Physical Therapy Plan Frequency and Duration Frequency of Treatment 2x/Week Duration of treatment (weeks) 8 Plan of Care Start Date 05/04/23 Plan of Care End Date 07/04/23 Therapeutic Interventions Therapeutic Interventions Home Exercise Program,Manual Therapy,Patient/Caregiver Education,Self-Care/Home Management,Soft Tissue Mobilization,Taping, Therapeutic Activities, Therapeutic Exercises Modalities Cold Pack/Ice Massage,Electric Stimulation,Hot Packs, Infrared Therapy,Iontophoresis ,Ultrasound Next Visit Focus/Plan Next Note Type Treatment Note Next Visit Plan ASsess response to iontophoresis, continue ROM and strengthening for shoulder and wrist right. Manual therapy and modalities PRN.
--- NOTE | 2023-05-16 15:24 | PT.OTN ---
Current Diagnoses Pain in right shoulder (05/16/23) Unspecified disorder of synovium and tendon, right shoulder (05/16/23) Weakness (05/16/23) Edema, unspecified (05/16/23) Other intraarticular fracture of lower end of right radius, subsequent encounter for closed fracture with routine healing (05/16/23) Physical Therapy Treatment Note PT-OP-A Visit Information Start: 05/03/23 16:34 Freq: Status: Active Protocol: Document 05/16/23 14:18 NB (Rec: 05/16/23 15:23 NB [id number]) Out-Patient Physical Therapy Visit Information Visit Information Visit Type Treatment Note Visit Note Pt late Visit Start Time 14:18 Visit Stop Time 15:11 Total Visit Minutes 53 Visit Number 4 Number of DYNAMICS AX TECHNICAL ARCHITECT Visits 1 Evaluation Information Evaluation Date 05/04/23 Precautions Precautions right wrist fracture s/p ORIF PT-OP-B Current Condition Start: 05/03/23 16:34 Freq: Status: Active Protocol: Document 05/04/23 15:00 SAK (Rec: 05/04/23 16:07 SAK [id number]) Current Condition History of Current Condition Onset Date 02/25/23 Current Complaints painful and limited function right wrist and shoulder History of Current Condition Fractured right wrist s/p fall 02/25/23. ORIF 03/04/[address] Mauro with plate and 8 screws. . Only precaution at recent appointment was advised not to go out on rocks at [facility] which was where she injured herself. Has been doing exercise given by Dr. Mauro, did not bring today. Also c/o right shoulder pain since fall, no imaging or treatment yet. Difficulty getting dressed, excrutiating pain if tries to lift overhead or behind back. Using heating pad on shoulder, ice on wrist especially by the end of the day. Some numbness base of left thumb, when wakes up tingling in hand. x-ray looked good. Patient is right handed. Prior Treatments and Tests ORIF right wrist no imaging right shouldr Future Testing and Treatments Planned follow-up with Dr. Mauro Treatment Goals Patient/Caregiver Goals improve right shoulder and right wrist fuction Prior Functional Status Baseline Function- ADL's Independent Baseline Function- Mobility Independent Baseline Function- Work/School retired Baseline Function- Recreation/Hobbies unrestricted Current Functional Impairments (Reported) Functional Limitations- ADL's painful, can't reach overhead or behind her back, lack of full garage helper, lack of full wrist ROM Functional Limitations- Recreation/ unable Hobbies PT-OP-C Subjective Start: 05/03/23 16:34 Freq: Status: Active Protocol: Document 05/16/23 14:18 NBM (Rec: 05/16/23 15:23 NB [id number]) OP-PT Subjective Patient Comments Patient Comments Pt reports she is getting better and better and has been inspired to start her own strength training. Swelling has imrproved. It's a little hard to do the ex's twice a day. She got pulleys for home and has to stand because doors are 8-ft high. F/U w/ surgeon 1.5 weeks. PT-OP-H Neuro Start: 05/03/23 16:34 Freq: Status: Active Protocol: Document 05/04/23 15:00 SAK (Rec: 05/04/23 16:07 [facility] [id number]) Sensation Evaluation Gross Sensation Gross Sensation Right LE Impaired Sensation Description Numbness,Tingling PT-OP-K Range of Motion Start: 05/03/23 16:34 Freq: Status: Active Protocol: Document 05/04/23 15:00 SAK (Rec: 05/04/23 16:07 [facility] [id number]) Cervical Spine Range of Motion Cervical Spine Active Comments WFL Shoulder Goniometric Range of Motion Shoulder Right Shoulder ROM WFL Yes Flexion 144 Extension 10 Abduction 90 Horizontal Abduction 65 Horizontal Adduction 45 External Rotation at 90 degrees 45 Abduction Internal Rotation Behind Back (text) L4 Comments positive belly press test left Shoulder ROM WFL Yes Wrist Goniometric Range of Motion Wrist Right Wrist ROM WFL No Flexion Active (degrees) 39 Flexion Passive (degrees) 47 Extension Active (degrees) 46 Extension Passive (degrees) 61 Ulnar Deviation Active (degrees) 15 Ulnar Deviation Passive (degrees) 21 Radial Deviation Active (degrees) 4 Radial Deviation Passive (degrees) 7 Left Wrist ROM WFL Yes ROM Limitations Wrist Limitations of Range of Motion Bony Restriction,Pain,Swelling Finger Goniometric Range of Motion Finger ROM Limitations Finger ROM Limitations Muscle Weakness,Swelling Thumb Goniometric Range of Motion Thumb ROM Limitations Thumb Range of Motion Limitations Muscle Weakness,Pain,Swelling PT-OP-M Strength Start: 05/03/23 16:34 Freq: Status: Active Protocol: Document 05/04/23 15:00 SAK (Rec: 05/04/23 16:07 SAK [id number]) Shoulder Strength Shoulder Manual Muscle Testing Right Flexion 3+ Fair+ Extension 3+ Fair+ Abduction (C5) 3+ Fair+ External Rotation 3- Fair- Internal Rotation 2+ Poor+ Comments painful all resisted motions, most internal rotation Left Flexion 5 Normal Extension 5 Normal Adduction 5 Normal External Rotation 4+ Good+ Internal Rotation 5 Normal Elbow/Forearm Strength Elbow and Forearm Manual Muscle Testing Right Flexion (C6) 4 Good Extension (C7) 4 Good Pronation 3+ Fair+ Supination 3+ Fair+ Left Flexion (C6) 5 Normal Extension (C7) 5 Normal Pronation 5 Normal Supination 5 Normal Wrist Strength Wrist Manual Muscle Testing Right Comments no MMT due to recent surgery, pain, lack of full active motion Left Flexion (C7) 5 Normal Extension (C6) 5 Normal Ulnar Deviation 5 Normal Radial Deviation 5 Normal Finger/Thumb Strength Finger Manual Muscle Testing Right Flexion (fingers C8) 3- Fair- Extension (thumb C8) 3+ Fair+ Adduction 3+ Fair+ Abduction (fingers T1) 3+ Fair+ Left Flexion (fingers C8) 5 Normal Extension (thumb C8) 5 Normal Adduction 5 Normal Abduction (fingers T1) 5 Normal Hand Budget Examiner/Pinch Strength Hand Strength Right Budget Examiner (lbs) 5 Left Budget Examiner (lbs) 42 PT-OP-Q Treatments Start: 05/03/23 16:34 Freq: Status: Active Protocol: Document 05/16/23 14:18 [facility] (Rec: 05/16/23 15:23 [facility] [id number]) Cardio Equipment Recumbent Elliptical ([employer]) Duration (Minutes) 7 Resistance 1 Seat Position 7 Therapeutic Exercises Sitting Exercises pulleys Sitting Exercise Name flexion and scaption Equipment Used ball mid thoracic spine Reps/Minutes 10x thera bar Sitting Exercise Name fwd/bck, side, twist, pro/sup Equipment Used red Reps/Minutes 10x ea Comments cues for increasing R twist wrist alphabet writing Side right Reps/Minutes 1 min Comments cue for full pain-free range wrist radial/ulnar dev Reps/Minutes 10x wrist flex/ext Reps/Minutes 10x, overpressure. Standing Exercises wall push-up Reps/Minutes 10x shoulder ext Equipment Used L1 Reps/Minutes 10x Comments cues for thumbs up shoulder ER Side right Equipment Used L1 TB Reps/Minutes 10x Comments cues for set-up, pain-free range, no wrist ext shoulder IR Side right Equipment Used L1 TB Reps/Minutes 10x Comments cues for scapular setting row Equipment Used L1 TB Reps/Minutes 10x Self-Care/Home Management Treatment Education Patient Education Home Exercise Program,Pain Management,Posture Other Education Reviewed HEP and cued for pain -free range without wrist ext for Shoulder ER, and for scapular setting with shoulder IR. PT-OP-R Modalities Start: 05/03/23 16:34 Freq: Status: Active Protocol: Document 05/16/23 14:18 NBM (Rec: 05/16/23 15:23 [facility] [id number]) Iontophoresis Treatment right shoulder Treatment Medication Dexamethasone (-) Medication Amount (mL) (ml) 1 Medication Dosage 5 mg/ml Treatment Polarity - Treatment Duration (minutes) 5 Patient Tolerance Good PT-OP-T Assessment and Plan Start: 05/03/23 16:34 Freq: Status: Active Protocol: Document 05/16/23 14:18 NB (Rec: 05/16/23 15:23 [facility] [id number]) Physical Therapy Assessment Goals Three Impairment soft tissue mobility and edema Impairment Decreased scar mobility and moderate edema right wrist and hand Short Term Goal (STG) patient will be taught scar massage and edema management for her right wrist and hand STG Duration 06/07/23 Document Analyst Goal (LTG) Improve scar mobility to WNL and decrease edema to minimal level for improved right wrist and hand function LTG Duration 08/05/23 Two Impairment activity tolerance Impairment unable to reach overhead or behind her back right UE, and unable to use right hand to perform functional tasks such as lift, carry, or open jars Mcfp Goal (LTG) Patient to improve functional use of her right UE to allow her to reach overhead, behind her back and perform all other usual ADL's and functional tasks right UE. One Impairment ROM and strength Impairment Lacking full AROM and strength right wrist,hand, and shoulder Short Term Goal (STG) Patient to be instructed in individualized and progressive HEP for the purposes of right shoulder,wrist, and hand ROM and strengthening. STG Duration 06/07/23 Mcfp Goal (LTG) Patient to be independent and compliant with HEP and demonstrate improvement in right UE ROM and strength to WFL including right garage helper to at least 45# LTG Duration 08/04/23 Assessment Summary Assessment Migdalia continues to progress and demonstrates HEP compliance. Migdalia presents with post-op HEP and PT HEP ( see Notes). Treatment focus on HEP review and she requires cues for pain-free range without wrist ext for Shoulder ER, and for scapular setting with shoulder IR. She needs cues for UT overactivation with pulleys and for keeping R arm straight. She demonstrates improved self- awareness with cues and repetition and demonstrates good scapular setting for upright posture with resisted band ex's. Physical Therapy Plan Frequency and Duration Frequency of Treatment 2x/Week Duration of treatment (weeks) 8 Plan of Care Start Date 05/04/23 Plan of Care End Date 07/04/23 Therapeutic Interventions Therapeutic Interventions Home Exercise Program,Manual Therapy,Patient/Caregiver Education,Self-Care/Home Management,Soft Tissue Mobilization,Taping, Therapeutic Activities, Therapeutic Exercises Modalities Cold Pack/Ice Massage,Electric Stimulation,Hot Packs, Infrared Therapy,Iontophoresis ,Ultrasound Next Visit Focus/Plan Next Note Type Treatment Note Next Visit Plan iontophoresis, continue ROM and strengthening for shoulder and wrist right. Manual therapy and modalities PRN.
--- NOTE | 2023-05-18 17:17 | PT.OTN ---
Current Diagnoses Pain in right shoulder (05/18/23) Unspecified disorder of synovium and tendon, right shoulder (05/18/23) Weakness (05/18/23) Edema, unspecified (05/18/23) Other intraarticular fracture of lower end of right radius, subsequent encounter for closed fracture with routine healing (05/18/23) Physical Therapy Treatment Note PT-OP-A Visit Information Start: 05/03/23 16:34 Freq: Status: Active Protocol: Document 05/18/23 14:55 [facility] (Rec: 05/18/23 15:49 [facility] [id number]) Out-Patient Physical Therapy Visit Information Visit Information Visit Type Treatment Note Visit Start Time 15:00 Visit Stop Time 15:45 Total Visit Minutes 45 Visit Number 5 Number of BUCKLE WIRE INSERTER Visits 0 Evaluation Information Evaluation Date 05/04/23 Precautions Precautions right wrist fracture s/p ORIF PT-OP-B Current Condition Start: 05/03/23 16:34 Freq: Status: Active Protocol: Document 05/04/23 15:00 SAK (Rec: 05/04/23 16:07 [facility] [id number]) Current Condition History of Current Condition Onset Date 02/25/23 Current Complaints painful and limited function right wrist and shoulder History of Current Condition Fractured right wrist s/p fall 02/25/23. ORIF 03/04/[address] Mauro with plate and 8 screws. . Only precaution at recent appointment was [facility]. Has been doing exercise given by Dr. Mauro, did not bring today. Also c/o right shoulder pain since fall, no imaging or treatment yet. Difficulty getting dressed, excrutiating pain if tries to lift overhead or behind back. Using heating pad on shoulder, ice on wrist especially by the end of the day. Some numbness base of left thumb, when wakes up tingling in hand. x-ray looked good. Patient is right handed. Prior Treatments and Tests ORIF right wrist no imaging right shouldr Future Testing and Treatments Planned follow-up with Dr. Mauro Treatment Goals Patient/Caregiver Goals improve right shoulder and right wrist fuction Prior Functional Status Baseline Function- ADL's Independent Baseline Function- Mobility Independent Baseline Function- Work/School retired Baseline Function- Recreation/Hobbies unrestricted Current Functional Impairments (Reported) Functional Limitations- ADL's painful, can't reach overhead or behind her back, lack of full rn mds coordinator, lack of full wrist ROM Functional Limitations- Recreation/ unable Hobbies PT-OP-C Subjective Start: 05/03/23 16:34 Freq: Status: Active Protocol: Document 05/18/23 14:55 [facility] (Rec: 05/18/23 15:49 [facility] [id number]) OP-PT Subjective Patient Comments Patient Comments Doing interval exercises, has to modfy UE movement. Taking off shirts and getting comfortable in bed most painful. Iontophoresis very helpful; dreamy. Was able to garden some over the weekend; can use right UE for a lot more functional things, still can't cut some things. Feels like device in wrist keeps me from full motion. Sees surgeon in 1 week. OP-PT Pain Assessment Pain Assessment Grid Paper Pain Assessment Grid Completed Yes PT-OP-H Neuro Start: 05/03/23 16:34 Freq: Status: Active Protocol: Document 05/04/23 15:00 [facility] (Rec: 05/04/23 16:07 [facility] [id number]) Sensation Evaluation Gross Sensation Gross Sensation Right LE Impaired Sensation Description Numbness,Tingling PT-OP-K Range of Motion Start: 05/03/23 16:34 Freq: Status: Active Protocol: Document 05/04/23 15:00 [facility] (Rec: 05/04/23 16:07 [facility] [id number]) Cervical Spine Range of Motion Cervical Spine Active Comments WFL Shoulder Goniometric Range of Motion Shoulder Right Shoulder ROM WFL Yes Flexion 144 Extension 10 Abduction 90 Horizontal Abduction 65 Horizontal Adduction 45 External Rotation at 90 degrees 45 Abduction Internal Rotation Behind Back (text) L4 Comments positive belly press test left Shoulder ROM WFL Yes Wrist Goniometric Range of Motion Wrist Right Wrist ROM WFL No Flexion Active (degrees) 39 Flexion Passive (degrees) 47 Extension Active (degrees) 46 Extension Passive (degrees) 61 Ulnar Deviation Active (degrees) 15 Ulnar Deviation Passive (degrees) 21 Radial Deviation Active (degrees) 4 Radial Deviation Passive (degrees) 7 Left Wrist ROM WFL Yes ROM Limitations Wrist Limitations of Range of Motion Bony Restriction,Pain,Swelling Finger Goniometric Range of Motion Finger ROM Limitations Finger ROM Limitations Muscle Weakness,Swelling Thumb Goniometric Range of Motion Thumb ROM Limitations Thumb Range of Motion Limitations Muscle Weakness,Pain,Swelling PT-OP-M Strength Start: 05/03/23 16:34 Freq: Status: Active Protocol: Document 05/04/23 15:00 [facility] (Rec: 05/04/23 16:07 [facility] [id number]) Shoulder Strength Shoulder Manual Muscle Testing Right Flexion 3+ Fair+ Extension 3+ Fair+ Abduction (C5) 3+ Fair+ External Rotation 3- Fair- Internal Rotation 2+ Poor+ Comments painful all resisted motions, most internal rotation Left Flexion 5 Normal Extension 5 Normal Adduction 5 Normal External Rotation 4+ Good+ Internal Rotation 5 Normal Elbow/Forearm Strength Elbow and Forearm Manual Muscle Testing Right Flexion (C6) 4 Good Extension (C7) 4 Good Pronation 3+ Fair+ Supination 3+ Fair+ Left Flexion (C6) 5 Normal Extension (C7) 5 Normal Pronation 5 Normal Supination 5 Normal Wrist Strength Wrist Manual Muscle Testing Right Comments no MMT due to recent surgery, pain, lack of full active motion Left Flexion (C7) 5 Normal Extension (C6) 5 Normal Ulnar Deviation 5 Normal Radial Deviation 5 Normal Finger/Thumb Strength Finger Manual Muscle Testing Right Flexion (fingers C8) 3- Fair- Extension (thumb C8) 3+ Fair+ Adduction 3+ Fair+ Abduction (fingers T1) 3+ Fair+ Left Flexion (fingers C8) 5 Normal Extension (thumb C8) 5 Normal Adduction 5 Normal Abduction (fingers T1) 5 Normal Hand Social Work Instructor/Pinch Strength Hand Strength Right Social Work Instructor (lbs) 5 Left Social Work Instructor (lbs) 42 PT-OP-Q Treatments Start: 05/03/23 16:34 Freq: Status: Active Protocol: Document 05/18/23 14:55 [facility] (Rec: 05/18/23 15:49 [facility] [id number]) Cardio Equipment Recumbent Elliptical ([employer]) Duration (Minutes) 7 Resistance 2 Seat Position 7 Therapeutic Exercises Supine Exercises serratus punch Equipment Used foam roller Reps/Minutes 10x Comments manual and verbal cues downward dog Supine Exercise Name (prone) Reps/Minutes 2x30 Comments modified due to lack of full wrist ext child's pose Supine Exercise Name (prone) Reps/Minutes 2x30 Comments modified right d/t right shoulder pain pec marlin stretch Equipment Used foam roller Reps/Minutes 2x30 should flex Equipment Used foam roller Reps/Minutes 2x30 Comments stretch Prone Exercises I, T, Y Comments next session Sitting Exercises thera bar Sitting Exercise Name fwd/bck, side, twist, pro/sup Equipment Used blue Reps/Minutes 10x ea Comments cues for increasing R twist stick with rope Sitting Exercise Name rolling up and down Equipment Used 1# Reps/Minutes 3x wrist alphabet writing Comments HEP wrist flex/ext Reps/Minutes 10x, gentle overpressure. Standing Exercises wall push-up Comments HEP shoulder ext Comments HEP shoulder ER Comments reviewed HEP shoulder IR Comments reviewed HEP row Comments reviewed HEP Manual Therapy Treatment Soft Tissue Mobilization periscap Body Location subscap release Mobilization Type Sustained Pressure Intensity/Depth mod Body Position Sidelying cross friction Body Location RC right shoulder Intensity/Depth mod Body Position Supine Joint Mobilizations GH Direction inf, post Body Position Supine Comments long axis dist Self-Care/Home Management Treatment Education Patient Education Home Exercise Program,Pain Management,Posture Activities Self-Care/Home Management Activities modify yoga PRN for comfort, don't push into pain PT-OP-R Modalities Start: 05/03/23 16:34 Freq: Status: Active Protocol: Document 05/18/23 14:55 [facility] (Rec: 05/18/23 15:49 [facility] [id number]) Iontophoresis Treatment right shoulder Treatment Medication Dexamethasone (-) Medication Amount (mL) (ml) 1 Medication Dosage 5 mg/ml Treatment Polarity - Treatment Duration (minutes) 5 Patient Tolerance Good PT-OP-T Assessment and Plan Start: 05/03/23 16:34 Freq: Status: Active Protocol: Document 05/18/23 14:55 [facility] (Rec: 05/18/23 15:49 [facility] [id number]) Physical Therapy Assessment Goals Three Impairment soft tissue mobility and edema Impairment Decreased scar mobility and moderate edema right wrist and hand Short Term Goal (STG) patient will be taught scar massage and edema management for her right wrist and hand STG Duration 06/07/23 Invasive Physician Goal (LTG) Improve scar mobility to WNL and decrease edema to minimal level for improved right wrist and hand function LTG Duration 08/05/23 Two Impairment activity tolerance Impairment unable to reach overhead or behind her back right UE, and unable to use right hand to perform functional tasks such as lift, carry, or open jars Invasive Physician Goal (LTG) Patient to improve functional use of her right UE to allow her to reach overhead, behind her back and perform all other usual ADL's and functional tasks right UE. One Impairment ROM and strength Impairment Lacking full AROM and strength right wrist,hand, and shoulder Short Term Goal (STG) Patient to be instructed in individualized and progressive HEP for the purposes of right shoulder,wrist, and hand ROM and strengthening. STG Duration 06/07/23 Invasive Physician Goal (LTG) Patient to be independent and compliant with HEP and demonstrate improvement in right UE ROM and strength to WFL including right rn mds coordinator to at least 45# LTG Duration 08/04/23 Assessment Summary Assessment wrist flex 34, ext 61 AROM. Social Work Instructor strength 18 lbs. Continues to improve. Lacking full right shoulder elevation . Painful to remove shirt, painful shoulder at night. Has a few pain-free hrs with iontophoresis. Physical Therapy Plan Frequency and Duration Frequency of Treatment 2x/Week Duration of treatment (weeks) 8 Plan of Care Start Date 05/04/23 Plan of Care End Date 07/04/23 Therapeutic Interventions Therapeutic Interventions Home Exercise Program,Manual Therapy,Patient/Caregiver Education,Self-Care/Home Management,Soft Tissue Mobilization,Taping, Therapeutic Activities, Therapeutic Exercises Modalities Cold Pack/Ice Massage,Electric Stimulation,Hot Packs, Infrared Therapy,Iontophoresis ,Ultrasound Next Visit Focus/Plan Next Note Type Treatment Note Next Visit Plan Continue PT for right shoulder and right wrist ROM and strengthening, stress posture, scapular mobility and stab
--- NOTE | 2023-05-26 17:05 | PT.OTN ---
Current Diagnoses Pain in right shoulder (05/26/23) Unspecified disorder of synovium and tendon, right shoulder (05/26/23) Weakness (05/26/23) Edema, unspecified (05/26/23) Other intraarticular fracture of lower end of right radius, subsequent encounter for closed fracture with routine healing (05/26/23) Physical Therapy Treatment Note PT-OP-A Visit Information Start: 05/03/23 16:34 Freq: Status: Active Protocol: Document 05/26/23 09:41 [facility] (Rec: 05/26/23 10:36 [facility] [id number]) Out-Patient Physical Therapy Visit Information Visit Information Visit Type Treatment Note Visit Start Time 09:40 Visit Stop Time 10:35 Total Visit Minutes 55 Visit Number 7 Number of DESKTOP OPERATOR Visits 0 Evaluation Information Evaluation Date 05/04/23 Precautions Precautions right wrist fracture s/p ORIF PT-OP-B Current Condition Start: 05/03/23 16:34 Freq: Status: Active Protocol: Document 05/04/23 15:00 [facility] (Rec: 05/04/23 16:07 [facility] [id number]) Current Condition History of Current Condition Onset Date 02/25/23 Current Complaints painful and limited function right wrist and shoulder History of Current Condition Fractured right wrist s/p fall 02/25/23. ORIF 03/04/[address] Mauro with plate and 8 screws. . Only precaution at recent appointment was advised not to go out on rocks at [employer] which was where she injured herself. Has been doing exercise given by Dr. Mauro, did not bring today. Also c/o right shoulder pain since fall, no imaging or treatment yet. Difficulty getting dressed, excrutiating pain if tries to lift overhead or behind back. Using heating pad on shoulder, ice on wrist especially by the end of the day. Some numbness base of left thumb, when wakes up tingling in hand. x-ray looked good. Patient is right handed. Prior Treatments and Tests ORIF right wrist no imaging right shouldr Future Testing and Treatments Planned follow-up with Dr. 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 Surgeon pleased with patient progress, continue PT. Able to do more, mostly take off a shirt, not feeling the pain when sleeping, improving strength. Has to be careful with wrist on a few exercises. stiffness predominant symptom right wrist. PT-OP-H Neuro Start: 05/03/23 16:34 Freq: Status: Active Protocol: Document 05/04/23 15:00 [facility]AK (Rec: 05/04/23 16:07 [facility] [id number]) Sensation Evaluation Gross Sensation Gross Sensation Right LE Impaired Sensation Description Numbness,Tingling PT-OP-K Range of Motion Start: 05/03/23 16:34 Freq: Status: Active Protocol: Document 05/04/23 15:00 [facility]AK (Rec: 05/04/23 16:07 [facility] [id number]) Cervical Spine Range of Motion Cervical Spine Active Comments WFL Shoulder Goniometric Range of Motion Shoulder Right Shoulder ROM WFL Yes Flexion 144 Extension 10 Abduction 90 Horizontal Abduction 65 Horizontal Adduction 45 External Rotation at 90 degrees 45 Abduction Internal Rotation Behind Back (text) L4 Comments positive belly press test left Shoulder ROM WFL Yes Wrist Goniometric Range of Motion Wrist Right Wrist ROM WFL No Flexion Active (degrees) 39 Flexion Passive (degrees) 47 Extension Active (degrees) 46 Extension Passive (degrees) 61 Ulnar Deviation Active (degrees) 15 Ulnar Deviation Passive (degrees) 21 Radial Deviation Active (degrees) 4 Radial Deviation Passive (degrees) 7 Left Wrist ROM WFL Yes ROM Limitations Wrist Limitations of Range of Motion Bony Restriction,Pain,Swelling Finger Goniometric Range of Motion Finger ROM Limitations Finger ROM Limitations Muscle Weakness,Swelling Thumb Goniometric Range of Motion Thumb ROM Limitations Thumb Range of Motion Limitations Muscle Weakness,Pain,Swelling PT-OP-M Strength Start: 05/03/23 16:34 Freq: Status: Active Protocol: Document 05/04/23 15:00 [facility]AK (Rec: 05/04/23 16:07 [facility] [id number]) Shoulder Strength Shoulder Manual Muscle Testing Right Flexion 3+ Fair+ Extension 3+ Fair+ Abduction (C5) 3+ Fair+ External Rotation 3- Fair- Internal Rotation 2+ Poor+ Comments painful all resisted motions, most internal rotation Left Flexion 5 Normal Extension 5 Normal Adduction 5 Normal External Rotation 4+ Good+ Internal Rotation 5 Normal Elbow/Forearm Strength Elbow and Forearm Manual Muscle Testing Right Flexion (C6) 4 Good Extension (C7) 4 Good Pronation 3+ Fair+ Supination 3+ Fair+ Left Flexion (C6) 5 Normal Extension (C7) 5 Normal Pronation 5 Normal Supination 5 Normal Wrist Strength Wrist Manual Muscle Testing Right Comments no MMT due to recent surgery, pain, lack of full active motion Left Flexion (C7) 5 Normal Extension (C6) 5 Normal Ulnar Deviation 5 Normal Radial Deviation 5 Normal Finger/Thumb Strength Finger Manual Muscle Testing Right Flexion (fingers C8) 3- Fair- Extension (thumb C8) 3+ Fair+ Adduction 3+ Fair+ Abduction (fingers T1) 3+ Fair+ Left Flexion (fingers C8) 5 Normal Extension (thumb C8) 5 Normal Adduction 5 Normal Abduction (fingers T1) 5 Normal Hand Financial Services Education Consultant/Pinch Strength Hand Strength Right Financial Services Education Consultant (lbs) 5 Left Financial Services Education Consultant (lbs) 42 PT-OP-Q Treatments Start: 05/03/23 16:34 Freq: Status: Active Protocol: Document 05/26/23 09:41 [facility] (Rec: 05/26/23 10:36 [facility] [id number]) Cardio Equipment Recumbent Elliptical (Biodex) Duration (Minutes) 5 Resistance 2 Seat Position 7 Other right hand only Therapeutic Exercises Supine Exercises pec minor stretch Reps/Minutes 2x30 serratus punch Resistance 2# Equipment Used foam roller Reps/Minutes 10x Comments manual and verbal cues pec marlin stretch Equipment Used foam roller Reps/Minutes 2x30 Comments pillow under right should flex Equipment Used foam roller Reps/Minutes 2x30 Comments stretch Sitting Exercises pulleys Sitting Exercise Name flexion and scaption Equipment Used ball mid thoracic spine Reps/Minutes 10x wrist flex/ext Sitting Exercise Name passive end-range stretch Standing Exercises wall push-up Reps/Minutes 10x Therapeutic Activity Therapeutic Activity throw Reps/Minutes 12x Comments 1# rebounder Manual Therapy Treatment Soft Tissue Mobilization forearm Mobilization Type Myofascial Release,Strumming Intensity/Depth mod Body Position Supine scar mob Mobilization Type Instrument Assisted Intensity/Depth mod Body Position Sitting Comments small suction over surgical scar also shown use of ball for scar massage periscap Body Location subscap release Mobilization Type Sustained Pressure Intensity/Depth mod Body Position Sidelying cross friction Body Location RC right shoulder Intensity/Depth mod Body Position Supine Joint Mobilizations scapula Direction protr,retr Grade III Body Position Sidelying Self-Care/Home Management Treatment Education Other Education updated HEP PT-OP-R Modalities Start: 05/03/23 16:34 Freq: Status: Active Protocol: Document 05/18/23 14:55 [facility] (Rec: 05/18/23 15:49 [facility] [id number]) Iontophoresis Treatment right shoulder Treatment Medication Dexamethasone (-) Medication Amount (mL) (ml) 1 Medication Dosage 5 mg/ml Treatment Polarity - Treatment Duration (minutes) 5 Patient Tolerance Good PT-OP-T Assessment and Plan Start: 05/03/23 16:34 Freq: Status: Active Protocol: Document 05/26/23 09:41 [facility] (Rec: 05/26/23 10:36 [facility] [id number]) Physical Therapy Assessment Impairments Impairments Edema,Functional Activities, ROM,Soft Tissue Mobility, Strength Other Impairments wrist circumfence 17.4 left 18.9 left. Goals Three Impairment soft tissue mobility and edema Impairment Decreased scar mobility and moderate edema right wrist and hand Short Term Goal (STG) patient will be taught scar massage and edema management for her right wrist and hand STG Duration 06/07/23 Batch Dumper Goal (LTG) Improve scar mobility to WNL and decrease edema to minimal level for improved right wrist and hand function LTG Duration 08/05/23 Two Impairment activity tolerance Impairment unable to reach overhead or behind her back right UE, and unable to use right hand to perform functional tasks such as lift, carry, or open jars Batch Dumper Goal (LTG) Patient to improve functional use of her right UE to allow her to reach overhead, behind her back and perform all other usual ADL's and functional tasks right UE. One Impairment ROM and strength Impairment Lacking full AROM and strength right wrist,hand, and shoulder Short Term Goal (STG) Patient to be instructed in individualized and progressive HEP for the purposes of right shoulder,wrist, and hand ROM and strengthening. STG Duration 06/07/23 Batch Dumper Goal (LTG) Patient to be independent and compliant with HEP and demonstrate improvement in right UE ROM and strength to WFL including right winding lathe operator to at least 45# LTG Duration 08/04/23 Assessment Summary Assessment Good progress with healing, scar mobility, dec shoulder pain, improving function right hand. Physical Therapy Plan Frequency and Duration Frequency of Treatment 2x/Week Duration of treatment (weeks) 8 Plan of Care Start Date 05/04/23 Plan of Care End Date 07/04/23 Therapeutic Interventions Therapeutic Interventions Home Exercise Program,Manual Therapy,Patient/Caregiver Education,Self-Care/Home Management,Soft Tissue Mobilization,Taping, Therapeutic Activities, Therapeutic Exercises Modalities Cold Pack/Ice Massage,Electric Stimulation,Hot Packs, Infrared Therapy,Iontophoresis ,Ultrasound Next Visit Focus/Plan Next Note Type Treatment Note Next Visit Plan Continue PT for right shoulder and right wrist ROM and strengthening, stress posture, scapular mobility and stab. Test winding lathe operator strength with dynamometer
--- NOTE | 2023-06-01 13:45 | PT.OTN ---
Current Diagnoses Pain in right shoulder (06/01/23) Unspecified disorder of synovium and tendon, right shoulder (06/01/23) Weakness (06/01/23) Edema, unspecified (06/01/23) Other intraarticular fracture of lower end of right radius, subsequent encounter for closed fracture with routine healing (06/01/23) Physical Therapy Treatment Note PT-OP-A Visit Information Start: 05/03/23 16:34 Freq: Status: Active Protocol: Document 06/01/23 12:30 [facility] (Rec: 06/01/23 13:45 [facility] [id number]) Out-Patient Physical Therapy Visit Information Visit Information Visit Type Treatment Note Visit Start Time 12:30 Visit Stop Time 15:07 Total Visit Minutes 50 Visit Number 9 Number of FLOOR FRAMER Visits 0 Evaluation Information Evaluation Date 05/04/23 Precautions Precautions right wrist fracture s/p ORIF PT-OP-B Current Condition Start: 05/03/23 16:34 Freq: Status: Active Protocol: Document 05/04/23 15:00 [facility] (Rec: 05/04/23 16:07 [facility] [id number]) Current Condition History of Current Condition Onset Date 02/25/23 Current Complaints painful and limited function right wrist and shoulder History of Current Condition Fractured right wrist s/p fall 02/25/23. ORIF 03/04/[address] Mauro with plate and 8 screws. . Only precaution at recent appointment was advised not to go out on rocks at [employer] which was where she injured herself. Has been doing exercise given by Dr. Mauro, did not bring today. Also c/o right shoulder pain since fall, no imaging or treatment yet. Difficulty getting dressed, excrutiating pain if tries to lift overhead or behind back. Using heating pad on shoulder, ice on wrist especially by the end of the day. Some numbness base of left thumb, when wakes up tingling in hand. x-ray looked good. Patient is right handed. Prior Treatments and Tests ORIF right wrist no imaging right shouldr Future Testing and Treatments Planned follow-up with Dr. aMuro Treatment Goals Patient/Caregiver Goals improve right shoulder and right wrist fuction Prior Functional Status Baseline Function- ADL's Independent Baseline Function- Mobility Independent Baseline Function- Work/School retired Baseline Function- Recreation/Hobbies unrestricted Current Functional Impairments (Reported) Functional Limitations- ADL's painful, can't reach overhead or behind her back, lack of full adult caregiver, lack of full wrist ROM Functional Limitations- Recreation/ unable Hobbies PT-OP-C Subjective Start: 05/03/23 16:34 Freq: Status: Active Protocol: Document 06/01/23 12:30 [facility] (Rec: 06/01/23 13:45 [facility] [id number]) OP-PT Subjective Patient Comments Patient Comments Shoulder and wrist both improving exponentially. Foam roller; using yoga mat. Patient Reported Progress Improving PT-OP-H Neuro Start: 05/03/23 16:34 Freq: Status: Active Protocol: Document 05/04/23 15:00 [facility]AK (Rec: 05/04/23 16:07 [facility] [id number]) Sensation Evaluation Gross Sensation Gross Sensation Right LE Impaired Sensation Description Numbness,Tingling PT-OP-K Range of Motion Start: 05/03/23 16:34 Freq: Status: Active Protocol: Document 05/04/23 15:00 [facility] (Rec: 05/04/23 16:07 [facility] [id number]) Cervical Spine Range of Motion Cervical Spine Active Comments WFL Shoulder Goniometric Range of Motion Shoulder Right Shoulder ROM WFL Yes Flexion 144 Extension 10 Abduction 90 Horizontal Abduction 65 Horizontal Adduction 45 External Rotation at 90 degrees 45 Abduction Internal Rotation Behind Back (text) L4 Comments positive belly press test left Shoulder ROM WFL Yes Wrist Goniometric Range of Motion Wrist Right Wrist ROM WFL No Flexion Active (degrees) 39 Flexion Passive (degrees) 47 Extension Active (degrees) 46 Extension Passive (degrees) 61 Ulnar Deviation Active (degrees) 15 Ulnar Deviation Passive (degrees) 21 Radial Deviation Active (degrees) 4 Radial Deviation Passive (degrees) 7 Left Wrist ROM WFL Yes ROM Limitations Wrist Limitations of Range of Motion Bony Restriction,Pain,Swelling Finger Goniometric Range of Motion Finger ROM Limitations Finger ROM Limitations Muscle Weakness,Swelling Thumb Goniometric Range of Motion Thumb ROM Limitations Thumb Range of Motion Limitations Muscle Weakness,Pain,Swelling PT-OP-M Strength Start: 05/03/23 16:34 Freq: Status: Active Protocol: Document 05/04/23 15:00 [facility] (Rec: 05/04/23 16:07 [facility] [id number]) Shoulder Strength Shoulder Manual Muscle Testing Right Flexion 3+ Fair+ Extension 3+ Fair+ Abduction (C5) 3+ Fair+ External Rotation 3- Fair- Internal Rotation 2+ Poor+ Comments painful all resisted motions, most internal rotation Left Flexion 5 Normal Extension 5 Normal Adduction 5 Normal External Rotation 4+ Good+ Internal Rotation 5 Normal Elbow/Forearm Strength Elbow and Forearm Manual Muscle Testing Right Flexion (C6) 4 Good Extension (C7) 4 Good Pronation 3+ Fair+ Supination 3+ Fair+ Left Flexion (C6) 5 Normal Extension (C7) 5 Normal Pronation 5 Normal Supination 5 Normal Wrist Strength Wrist Manual Muscle Testing Right Comments no MMT due to recent surgery, pain, lack of full active motion Left Flexion (C7) 5 Normal Extension (C6) 5 Normal Ulnar Deviation 5 Normal Radial Deviation 5 Normal Finger/Thumb Strength Finger Manual Muscle Testing Right Flexion (fingers C8) 3- Fair- Extension (thumb C8) 3+ Fair+ Adduction 3+ Fair+ Abduction (fingers T1) 3+ Fair+ Left Flexion (fingers C8) 5 Normal Extension (thumb C8) 5 Normal Adduction 5 Normal Abduction (fingers T1) 5 Normal Hand Manager Creative Services/Pinch Strength Hand Strength Right Manager Creative Services (lbs) 5 Left Manager Creative Services (lbs) 42 PT-OP-Q Treatments Start: 05/03/23 16:34 Freq: Status: Active Protocol: Document 06/01/23 12:30 [facility] (Rec: 06/01/23 13:45 [facility] [id number]) Cardio Equipment Recumbent Elliptical (FreeWavz) Duration (Minutes) 6 Resistance 3 Seat Position 7 Other right hand only Therapeutic Exercises Supine Exercises serratus punch Resistance 2# Equipment Used foam roller Reps/Minutes 10x Comments manual and verbal cues pec marlin stretch Equipment Used foam roller Reps/Minutes 2x30 Comments pillow under right should flex Equipment Used foam roller, L2 TB Reps/Minutes 2x30, 10x Comments stretch, L2 band stretched between hands Sitting Exercises pulleys Sitting Exercise Name flexion and scaption Equipment Used orange ball mid thoracic spine Reps/Minutes 10x Comments manual facilitation for upward scapular rotation Standing Exercises tricep and lat stretch Reps/Minutes 2x30 Body blade Standing Exercise Name gretel fwd/bck chest level, unil fwd/bck elbow 90, IR/ER elbow 90 Equipment Used small Reps/Minutes 15 sec ea Manual Therapy Treatment Soft Tissue Mobilization periscap Body Location subscap release with pin and stretch Mobilization Type Sustained Pressure Intensity/Depth mod Body Position Sidelying Self-Care/Home Management Treatment Education Other Education Use of tennis ball, raquetball , foam roller for subscap, serratus, lat massage and release standing, sidelying PT-OP-R Modalities Start: 05/03/23 16:34 Freq: Status: Active Protocol: Document 05/18/23 14:55 [facility] (Rec: 05/18/23 15:49 [facility] [id number]) Iontophoresis Treatment right shoulder Treatment Medication Dexamethasone (-) Medication Amount (mL) (ml) 1 Medication Dosage 5 mg/ml Treatment Polarity - Treatment Duration (minutes) 5 Patient Tolerance Good PT-OP-T Assessment and Plan Start: 05/03/23 16:34 Freq: Status: Active Protocol: Document 06/01/23 12:30 [facility] (Rec: 06/01/23 13:45 [facility] [id number]) Physical Therapy Assessment Impairments Impairments Edema,Functional Activities, ROM,Soft Tissue Mobility, Strength Goals Three Impairment soft tissue mobility and edema Impairment Decreased scar mobility and moderate edema right wrist and hand Short Term Goal (STG) patient will be taught scar massage and edema management for her right wrist and hand STG Duration 06/07/23 Correction Goal (LTG) Improve scar mobility to WNL and decrease edema to minimal level for improved right wrist and hand function LTG Duration 08/05/23 Two Impairment activity tolerance Impairment unable to reach overhead or behind her back right UE, and unable to use right hand to perform functional tasks such as lift, carry, or open jars Fur Trapper Goal (LTG) Patient to improve functional use of her right UE to allow her to reach overhead, behind her back and perform all other usual ADL's and functional tasks right UE. 05/30/23: She can use R hand to open most jars that have already been opened. Can squeeze out a sponge. One Impairment ROM and strength Impairment Lacking full AROM and strength right wrist,hand, and shoulder Short Term Goal (STG) Patient to be instructed in individualized and progressive HEP for the purposes of right shoulder,wrist, and hand ROM and strengthening. STG Duration 06/07/23 Fur Trapper Goal (LTG) Patient to be independent and compliant with HEP and demonstrate improvement in right UE ROM and strength to WFL including right adult caregiver to at least 45# LTG Duration 08/04/23 Assessment Summary Assessment Continues to progress with improved functional hand ROM and strength, shoulder ROM and function. Some impingement at end range right shoulder elevation but improved. Physical Therapy Plan Frequency and Duration Frequency of Treatment 2x/Week Duration of treatment (weeks) 8 Plan of Care Start Date 05/04/23 Plan of Care End Date 07/04/23 Therapeutic Interventions Therapeutic Interventions Home Exercise Program,Manual Therapy,Patient/Caregiver Education,Self-Care/Home Management,Soft Tissue Mobilization,Taping, Therapeutic Activities, Therapeutic Exercises Modalities Cold Pack/Ice Massage,Electric Stimulation,Hot Packs, Infrared Therapy,Iontophoresis ,Ultrasound Next Visit Focus/Plan Next Note Type Treatment Note Next Visit Plan TAke ROM and strength measurements wrist and shoulder, adult caregiver. Continue progression of ther ex as tolerated.
--- NOTE | 2023-06-13 16:36 | PT.OTN ---
Current Diagnoses Pain in right shoulder (06/13/23) Unspecified disorder of synovium and tendon, right shoulder (06/13/23) Weakness (06/13/23) Edema, unspecified (06/13/23) Other intraarticular fracture of lower end of right radius, subsequent encounter for closed fracture with routine healing (06/13/23) Physical Therapy Treatment Note PT-OP-A Visit Information Start: 05/03/23 16:34 Freq: Status: Active Protocol: Document 06/13/23 15:00 [facility] (Rec: 06/13/23 15:11 [facility] [id number]) Out-Patient Physical Therapy Visit Information Visit Information Visit Type Treatment Note Visit Start Time 15:00 Visit Stop Time 16:03 Total Visit Minutes 63 Visit Number 11 Number of SAMPLE SELECTOR Visits 0 PT-OP-B Current Condition Start: 05/03/23 16:34 Freq: Status: Active Protocol: Document 06/13/23 15:00 [facility] (Rec: 06/13/23 15:11 [facility] [id number]) Current Condition History of Current Condition Onset Date 02/25/23 Current Complaints painful and limited function right wrist and shoulder History of Current Condition Fractured right wrist s/p fall 02/25/23. ORIF 03/04/[address] Mauro with plate and 8 screws. . Only precaution at recent appointment was advised not to go out on rocks at [facility] which was where she injured herself. Has been doing exercise given by Dr. Mauro, did not bring today. Also c/o right shoulder pain since fall, no imaging or treatment yet. Difficulty getting dressed, excrutiating pain if tries to lift overhead or behind back. Using heating pad on shoulder, ice on wrist especially by the end of the day. Some numbness base of left thumb, when wakes up tingling in hand. x-ray looked good. Patient is right handed. Prior Treatments and Tests ORIF right wrist no imaging right shouldr Future Testing and Treatments Planned follow-up with Dr. Mauro PT-OP-C Subjective Start: 05/03/23 16:34 Freq: Status: Active Protocol: Document 06/13/23 15:00 [facility] (Rec: 06/13/23 15:11 [facility] [id number]) OP-PT Subjective Patient Comments Patient Comments No new c/o. Requests today last day PT, agreeable to follow-up in 1 month PT-OP-H Neuro Start: 05/03/23 16:34 Freq: Status: Active Protocol: Document 05/04/23 15:00 [facility] (Rec: 05/04/23 16:07 [facility] [id number]) Sensation Evaluation Gross Sensation Gross Sensation Right LE Impaired Sensation Description Numbness,Tingling PT-OP-K Range of Motion Start: 05/03/23 16:34 Freq: Status: Active Protocol: Document 05/04/23 15:00 [facility] (Rec: 05/04/23 16:07 [facility] [id number]) Cervical Spine Range of Motion Cervical Spine Active Comments WFL Shoulder Goniometric Range of Motion Shoulder Right Shoulder ROM WFL Yes Flexion 144 Extension 10 Abduction 90 Horizontal Abduction 65 Horizontal Adduction 45 External Rotation at 90 degrees 45 Abduction Internal Rotation Behind Back (text) L4 Comments positive belly press test left Shoulder ROM WFL Yes Wrist Goniometric Range of Motion Wrist Right Wrist ROM WFL No Flexion Active (degrees) 39 Flexion Passive (degrees) 47 Extension Active (degrees) 46 Extension Passive (degrees) 61 Ulnar Deviation Active (degrees) 15 Ulnar Deviation Passive (degrees) 21 Radial Deviation Active (degrees) 4 Radial Deviation Passive (degrees) 7 Left Wrist ROM WFL Yes ROM Limitations Wrist Limitations of Range of Motion Bony Restriction,Pain,Swelling Finger Goniometric Range of Motion Finger ROM Limitations Finger ROM Limitations Muscle Weakness,Swelling Thumb Goniometric Range of Motion Thumb ROM Limitations Thumb Range of Motion Limitations Muscle Weakness,Pain,Swelling PT-OP-M Strength Start: 05/03/23 16:34 Freq: Status: Active Protocol: Document 05/04/23 15:00 [facility] (Rec: 05/04/23 16:07 [facility] [id number]) Shoulder Strength Shoulder Manual Muscle Testing Right Flexion 3+ Fair+ Extension 3+ Fair+ Abduction (C5) 3+ Fair+ External Rotation 3- Fair- Internal Rotation 2+ Poor+ Comments painful all resisted motions, most internal rotation Left Flexion 5 Normal Extension 5 Normal Adduction 5 Normal External Rotation 4+ Good+ Internal Rotation 5 Normal Elbow/Forearm Strength Elbow and Forearm Manual Muscle Testing Right Flexion (C6) 4 Good Extension (C7) 4 Good Pronation 3+ Fair+ Supination 3+ Fair+ Left Flexion (C6) 5 Normal Extension (C7) 5 Normal Pronation 5 Normal Supination 5 Normal Wrist Strength Wrist Manual Muscle Testing Right Comments no MMT due to recent surgery, pain, lack of full active motion Left Flexion (C7) 5 Normal Extension (C6) 5 Normal Ulnar Deviation 5 Normal Radial Deviation 5 Normal Finger/Thumb Strength Finger Manual Muscle Testing Right Flexion (fingers C8) 3- Fair- Extension (thumb C8) 3+ Fair+ Adduction 3+ Fair+ Abduction (fingers T1) 3+ Fair+ Left Flexion (fingers C8) 5 Normal Extension (thumb C8) 5 Normal Adduction 5 Normal Abduction (fingers T1) 5 Normal Hand Cap Maker/Pinch Strength Hand Strength Right Cap Maker (lbs) 5 Left Cap Maker (lbs) 42 PT-OP-Q Treatments Start: 05/03/23 16:34 Freq: Status: Active Protocol: Document 06/13/23 15:00 [facility] (Rec: 06/13/23 15:11 [facility] [id number]) Cardio Equipment Upper Body Ergometer (UBE) Duration (Minutes) 5 RPM 60 Seat Position 11 Height 2.5 Therapeutic Exercises Supine Exercises supine I, T, Y stretch Supine Exercise Name demo for patient Equipment Used therapy ball Comments issued written handout Manual Therapy Treatment Soft Tissue Mobilization periscap Body Location subscap release with pin and stretch; supine and sidelying Mobilization Type Sustained Pressure Intensity/Depth mod Body Position Sidelying Comments instructed pin and stretch for home Other Other Manual Treatments ROM and strength testing Self-Care/Home Management Treatment Education Patient Education Home Exercise Program,Pain Management Other Education use of therapy ball for child' s pose and supine stretch shoulder, use of Theracane, self pin and stretch review HEP PT-OP-R Modalities Start: 05/03/23 16:34 Freq: Status: Active Protocol: Document 06/13/23 15:00 [facility] (Rec: 06/13/23 16:36 [facility] [id number]) Hot Pack/Cold Pack Treatment Hot Pack Location right shoulder and wrist Patient Position Hooklying Treatment Duration (minutes) 15 Patient Tolerance Good PT-OP-T Assessment and Plan Start: 05/03/23 16:34 Freq: Status: Active Protocol: Document 06/13/23 15:00 [facility] (Rec: 06/13/23 15:11 [facility] [id number]) Physical Therapy Assessment Impairments Impairments Edema,Functional Activities, ROM,Soft Tissue Mobility, Strength Goals Three Impairment soft tissue mobility and edema Impairment Decreased scar mobility and moderate edema right wrist and hand Short Term Goal (STG) patient will be taught scar massage and edema management for her right wrist and hand STG Duration goal met Paper Sample Clerk Goal (LTG) Improve scar mobility to WNL and decrease edema to minimal level for improved right wrist and hand function 06/13/23: good goal progress LTG Duration 08/05/23 Two Impairment activity tolerance Impairment unable to reach overhead or behind her back right UE, and unable to use right hand to perform functional tasks such as lift, carry, or open jars Paper Sample Clerk Goal (LTG) Patient to improve functional use of her right UE to allow her to reach overhead, behind her back and perform all other usual ADL's and functional tasks right UE. 05/30/23: She can use R hand to open most jars that have already been opened. Can squeeze out a sponge. 06/13/23: good goal progress One Impairment ROM and strength Impairment Lacking full AROM and strength right wrist,hand, and shoulder Short Term Goal (STG) Patient to be instructed in individualized and progressive HEP for the purposes of right shoulder,wrist, and hand ROM and strengthening. 06/13/23: goal met STG Duration goal met Care Home Goal (LTG) Patient to be independent and compliant with HEP and demonstrate improvement in right UE ROM and strength to WFL including right mineral surveyor to at least 45# 06/13/23: right wrist mineral surveyor 35# today, ROM and strength continue to improve LTG Duration 08/04/23 Assessment Summary Assessment Patient is highly compliant with HEP, demonstrating steady progress with ROM and strength, decreased pain. HEP updated further and she was instructed in self pin and stretch technique, use of therapy ball for flexibility, use of theracane for pain management. Doing well, good progress toward goals. REcommend she return for follow-up appt in 1 month. Physical Therapy Plan Frequency and Duration Frequency of Treatment 2x/Week Duration of treatment (weeks) 8 Plan of Care Start Date 05/04/23 Plan of Care End Date 07/04/23 Therapeutic Interventions Therapeutic Interventions Home Exercise Program,Manual Therapy,Patient/Caregiver Education,Self-Care/Home Management,Soft Tissue Mobilization,Taping, Therapeutic Activities, Therapeutic Exercises Modalities Cold Pack/Ice Massage,Electric Stimulation,Hot Packs, Infrared Therapy,Iontophoresis ,Ultrasound Next Visit Focus/Plan Next Note Type Treatment Note Next Visit Plan Follow-up ROM and strength testing, assure safety and independence with all aspects of self-care, correct HEP technique.
--- NOTE | 2023-07-18 16:03 | PT.OTN ---
Current Diagnoses Pain in right shoulder (07/18/23) Unspecified disorder of synovium and tendon, right shoulder (07/18/23) Weakness (07/18/23) Edema, unspecified (07/18/23) Other intraarticular fracture of lower end of right radius, subsequent encounter for closed fracture with routine healing (07/18/23) Physical Therapy Treatment Note PT-OP-A Visit Information Start: 05/03/23 16:34 Freq: Status: Active Protocol: Document 07/18/23 15:01 [facility] (Rec: 07/18/23 16:03 [facility] [id number]) Out-Patient Physical Therapy Visit Information Visit Information Visit Type Treatment Note Visit Start Time 15:02 Visit Stop Time 15:42 Total Visit Minutes 40 Visit Number 12 Number of SEAM STAYER Visits 0 Precautions Precautions right wrist fracture s/p ORIF PT-OP-B Current Condition Start: 05/03/23 16:34 Freq: Status: Active Protocol: Document 07/18/23 15: [facility] (Rec: 07/18/23 16:03 [facility] [id number]) Current Condition History of Current Condition Onset Date 02/25/23 Current Complaints painful and limited function right wrist and shoulder History of Current Condition Fractured right wrist s/p fall 02/25/23. ORIF 03/04/[address] Mauro with plate and 8 screws. . Only precaution at recent appointment was advised not to go out on rocks at [facility] which was where she injured herself. Has been doing exercise given by Dr. Mauro, did not bring today. Also c/o right shoulder pain since fall, no imaging or treatment yet. Difficulty getting dressed, excrutiating pain if tries to lift overhead or behind back. Using heating pad on shoulder, ice on wrist especially by the end of the day. Some numbness base of left thumb, when wakes up tingling in hand. x-ray looked good. Patient is right handed. Prior Treatments and Tests ORIF right wrist no imaging right shouldr Future Testing and Treatments Planned follow-up with Dr. Mauro PT-OP-C Subjective Start: 05/03/23 16:34 Freq: Status: Active Protocol: Document 07/18/23 15:01 [facility] (Rec: 07/18/23 16:03 [facility] [id number]) OP-PT Subjective Patient Comments Patient Comments States her shoulder is great, still working on wrist ROM. In a fibro flare. Has been on trip then had company so not as good with ex lately. Concerned still has some numbness middle 3 fingers. PT-OP-H Neuro Start: 05/03/23 16:34 Freq: Status: Active Protocol: Document 05/04/23 15:00 [facility] (Rec: 05/04/23 16:07 [facility] [id number]) Sensation Evaluation Gross Sensation Gross Sensation Right LE Impaired Sensation Description Numbness,Tingling PT-OP-K Range of Motion Start: 05/03/23 16:34 Freq: Status: Active Protocol: Document 07/18/23 15:01 [facility] (Rec: 07/18/23 16:03 [facility] [id number]) Shoulder Goniometric Range of Motion Shoulder Right Shoulder ROM WFL Yes Flexion 168 Extension 25 Abduction 90 Horizontal Abduction 65 Horizontal Adduction 45 External Rotation at 90 degrees 60 Abduction Internal Rotation Behind Back (text) L1 Wrist Goniometric Range of Motion Wrist Right Wrist ROM WFL No Flexion Active (degrees) 47 Flexion Passive (degrees) 47 Extension Active (degrees) 73 Extension Passive (degrees) 61 Ulnar Deviation Active (degrees) 30 Ulnar Deviation Passive (degrees) 34 Radial Deviation Active (degrees) 22 Radial Deviation Passive (degrees) 24 PT-OP-M Strength Start: 05/03/23 16:34 Freq: Status: Active Protocol: Document 07/18/23 15:01 [facility] (Rec: 07/18/23 16:03 [facility] [id number]) Shoulder Strength Shoulder Manual Muscle Testing Right Flexion 4+ Good+ Extension 4+ Good+ Abduction (C5) 4+ Good+ External Rotation 4+ Good+ Internal Rotation 4+ Good+ Comments no pain Hand Reconciling Clerk/Pinch Strength Hand Strength Right Reconciling Clerk (lbs) 29 PT-OP-Q Treatments Start: 05/03/23 16:34 Freq: Status: Active Protocol: Document 07/18/23 15:01 [facility] (Rec: 07/18/23 16:03 [facility] [id number]) Therapeutic Exercises Sitting Exercises resisted wrist\ Sitting Exercise Name ext, flex Equipment Used L1 TB Reps/Minutes 10x ea wrist flex/ext Sitting Exercise Name passive end-range stretch Standing Exercises wrist ext passive Equipment Used table Reps/Minutes 5x10 PT-OP-R Modalities Start: 05/03/23 16:34 Freq: Status: Active Protocol: Document 06/13/23 15:00 [facility] (Rec: 06/13/23 16:36 [facility] [id number]) Hot Pack/Cold Pack Treatment Hot Pack Location right shoulder and wrist Patient Position Hooklying Treatment Duration (minutes) 15 Patient Tolerance Good PT-OP-T Assessment and Plan Start: 05/03/23 16:34 Freq: Status: Active Protocol: Document 07/18/23 15:01 [facility] (Rec: 07/18/23 16:03 [facility] [id number]) Physical Therapy Assessment Goals Three Impairment soft tissue mobility and edema Impairment Decreased scar mobility and moderate edema right wrist and hand Short Term Goal (STG) patient will be taught scar massage and edema management for her right wrist and hand STG Duration goal met Calibration Checker Goal (LTG) Improve scar mobility to WNL and decrease edema to minimal level for improved right wrist and hand function 06/13/23: good goal progress 07/18/23: instructed in use of small suction tool to continue to work on scar massage at home LTG Duration mostly met Two LTG Duration goal met One Impairment ROM and strength Impairment Lacking full AROM and strength right wrist,hand, and shoulder Short Term Goal (STG) Patient to be instructed in individualized and progressive HEP for the purposes of right shoulder,wrist, and hand ROM and strengthening. 06/13/23: goal met STG Duration goal met Calibration Checker Goal (LTG) Patient to be independent and compliant with HEP and demonstrate improvement in right UE ROM and strength to WFL including right chemical operations and training to at least 45# 06/13/23: right wrist chemical operations and training 35# today, ROM and strength continue to improve 07/18/23: goal mostly met: 42# chemical operations and training right today LTG Duration 08/04/23 Assessment Summary Assessment Goals mostly met as above, patient demonstrates good understanding of HEP, not as compliant recently but plans to resume. Updated HEP for passive wrist extension on table and resisted wrist flex and ext with TB, plus instruction in use of suction tool for scar management. Encouraged patient to discuss numbness of fingers with physician though likely due to median nerve irritation from surgery, anticipate may improve. No further PT needs at this time. Patient to be discharged from PT after today 's visit. Insurance recertification for today's visit. Physical Therapy Plan Frequency and Duration Frequency of Treatment 1 visit Duration of treatment (weeks) 3 Plan of Care Start Date 07/04/23 Plan of Care End Date 07/18/23 Therapeutic Interventions Therapeutic Interventions Home Exercise Program,Manual Therapy,Patient/Caregiver Education,Self-Care/Home Management,Soft Tissue Mobilization,Therapeutic Exercises Discharge Physical Therapy Discharge Reasons Goals Met Discharge Comments Patient independent with HEP and self management. Should continue to improve. She plans to contact physician about numbness in middle 3 fingers.
--- NOTE | 2023-07-18 16:03 | PT.OPPOC ---
Physical, Occupational & Speech Therapy At [facility] Current Diagnoses Pain in right shoulder (07/18/23) Unspecified disorder of synovium and tendon, right shoulder (07/18/23) Weakness (07/18/23) Edema, unspecified (07/18/23) Other intraarticular fracture of lower end of right radius, subsequent encounter for closed fracture with routine healing (07/18/23) Visit Care Team Role Provider Type Tracey Joseph DO Attending Provider Physician Family Provider Primary Care Provider Referring Provider Specialty: Family Practice Address: [address] [place] [address], [facility] [place], [address] Email: [email or web address] Plan Of Care PT-OP-T Assessment and Plan Start: 05/03/23 16:34 Freq: Status: Active Protocol: Document 07/18/23 15:01 [facility] (Rec: 07/18/23 16:03 [facility] [id number]) Physical Therapy Assessment Goals Three Impairment soft tissue mobility and edema Impairment Decreased scar mobility and moderate edema right wrist and hand Short Term Goal (STG) patient will be taught scar massage and edema management for her right wrist and hand STG Duration goal met Life Care Planner Goal (LTG) Improve scar mobility to WNL and decrease edema to minimal level for improved right wrist and hand function 06/13/23: good goal progress 07/18/23: instructed in use of small suction tool to continue to work on scar massage at home LTG Duration mostly met Two LTG Duration goal met One Impairment ROM and strength Impairment Lacking full AROM and strength right wrist,hand, and shoulder Short Term Goal (STG) Patient to be instructed in individualized and progressive HEP for the purposes of right shoulder,wrist, and hand ROM and strengthening. 06/13/23: goal met STG Duration goal met Snf Goal (LTG) Patient to be independent and compliant with HEP and demonstrate improvement in right UE ROM and strength to WFL including right grizzly worker to at least 45# 06/13/23: right wrist grizzly worker 35# today, ROM and strength continue to improve 07/18/23: goal mostly met: 42# grizzly worker right today LTG Duration 08/04/23 Assessment Summary Assessment Goals mostly met as above, patient demonstrates good understanding of HEP, not as compliant recently but plans to resume. Updated HEP for passive wrist extension on table and resisted wrist flex and ext with TB, plus instruction in use of suction tool for scar management. Encouraged patient to discuss numbness of fingers with physician though likely due to median nerve irritation from surgery, anticipate may improve. No further PT needs at this time. Patient to be discharged from PT after today 's visit. Insurance recertification for today's visit. Physical Therapy Plan Frequency and Duration Frequency of Treatment 1 visit Duration of treatment (weeks) 3 Plan of Care Start Date 07/04/23 Plan of Care End Date 07/18/23 Therapeutic Interventions Therapeutic Interventions Home Exercise Program,Manual Therapy,Patient/Caregiver Education,Self-Care/Home Management,Soft Tissue Mobilization,Therapeutic Exercises Discharge Physical Therapy Discharge Reasons Goals Met Discharge Comments Patient independent with HEP and self management. Should continue to improve. She plans to contact physician about numbness in middle 3 fingers. Plan of Care Dates Plan of Care Start Date 07/04/23 Plan of Care End Date 07/18/23 Electronically Signed by: Liss Charles, PT 07/18/23 [id number] If you are in agreement with this Plan of Care, please return a signed and dated copy. I have reviewed this Plan of Care and certify that the skilled therapy services above are required to meet the patient?s needs. Physician Signature Date Printed Name and Credentials Clinical Instructor Signature Printed Name and Credentials
== END 2023-07-20 11:03 ==
LOC: PHYS 15:00
PROVIDERS: Family Provider Family Medicine; PCP Family Medicine; Referring Provider Family Medicine; Visit Provider Family Medicine
DX: S52.571D Other intraarticular fracture of lower end of right radius, subsequent encounter for closed fracture with routine healing (principal); M67.911 Unspecified disorder of synovium and tendon, right shoulder; R53.1 Weakness; R60.9 Edema, unspecified; M25.511 Pain in right shoulder
CPT/HCPCS: 97110; 97140; 97162; 97535

== ENCOUNTER → 2023-09-20 17:32 | Outpatient (CLI) | payer OTHER, MEDICAID, SELFPAY ==
--- NOTE | 2023-09-20 | DI.MG.S_ITS ---
BILATERAL DIGITAL SCREENING MAMMOGRAM 3D/2D WITH CAD: 09/20/2023 CLINICAL: Routine screening. Comparison is made to exams dated: 07/13/2022 mammogram, 07/17/2020 mammogram, 07/12/2018 mammogram, 04/11/2023 mammogram, and 07/26/2022 mammogram - [facility]. Both breasts are heterogeneously dense, which may obscure small masses (category c / 51-75% glandular tissue). Current study was also evaluated with a Computer Aided Detection (CAD) system. No significant masses, calcifications, or other findings are seen in either breast. There has been no significant interval change. IMPRESSION: NEGATIVE There is no mammographic evidence of malignancy. A 1 year screening mammogram is recommended. Based on the Tyrer Cuzick model (a risk assessment model) the patient's lifetime risk is 9.9% and her 10 year risk is 4.4%. According to the ACR, ACS, and NCCN guidelines, an annual breast MRI exam along with mammogram is recommended if the patient's lifetime risk is 20% or greater. This exam was interpreted at Station ID: [id number]. NOTE: For mammograms, a report in lay terms will be sent to the patient. Approximately 15% of breast malignancies will not be visualized mammographically. In the management of a palpable breast mass, a negative mammogram must not discourage biopsy of a clinically suspicious lesion. Electronically Signed By: Matt canales/soraya:09/21/2023 12:16:11 letter sent: Normal Exam ACR BI-RADS Category 1: Negative [id number]
== END ==
PROVIDERS: Family Provider Family Medicine; PCP Student in an Organized Health Care Education/Training Program; Referring Provider Student in an Organized Health Care Education/Training Program; Visit Provider Student in an Organized Health Care Education/Training Program
DX: Z12.31 Encounter for screening mammogram for malignant neoplasm of breast (principal)
CPT/HCPCS: 77063; 77067

== ENCOUNTER 2023-11-30 06:16 | Day surgery (SDC) | payer OTHER, MEDICAID, SELFPAY ==
[2023-11-23 12:51] VITALS: BMI 28.6
[2023-11-30] VITALS (10 sets, daily range): BP systolic 100–120; BP diastolic 69–78; PULSE 85–99; RESP 15–16; TEMP 36–36.6; O2SAT 93–96; BMI 28.0
--- NOTE | 2023-11-30 | DI.RAD.S_ITS ---
PROCEDURE: XR WRIST RT 2V INDICATIONS: HARDWARE REMOVAL TECHNIQUE: Fluoroscopic images submitted. COMPARISON: [facility], CR, XR WRIST RT MIN 3V, 02/27/2023, 14:04. FINDINGS Fluoroscopic images submitted for removal of radial hardware. Please see operative note. IMPRESSION: Fluoroscopic guidance for removal of radial hardware. Dictated by: Wilfred Kan M.D. on 11/30/2023 at 11:41 Approved by: Wilfred Kan M.D. on 11/30/2023 at 11:45
[2023-11-30] MEDS: LACTATED RINGERS 1,000 ML 42 ML IV ×2 (06:56→08:49)
--- NOTE | 2023-11-30 07:27 | P.HP_ITS ---
History of Present Illness History of Present Illness Date Patient Seen: 11/30/23 Time Patient Seen: 07:27 Chief complaint: Right Carpal Tunnel Release Narrative: Patient is a 62-year-old female that is right-hand dominant. She presents for right hand numbness and tingling pain and stiffness. She had a distal radius ORIF in February 2023. Her fracture is healed. She is exhausted conservative treatments in her symptoms persist. She is completed physical therapy. She denies any symptoms in the left. Recent EMG demonstrated mild right carpal tunnel syndrome. Complains of stiffness and numbness and tingling in her wrist and hand. She has been indicated for hardware removal and carpal tunnel release. We discussed carpal tunnel release in isolation. The patient desires hardware removal. She feels this may be contributing to her stiffness. Fracture is healed. -of note patient has disclosed to me today she recently started semaglutide less than 4 weeks ago. Last dose was Saturday November 25, 2023 [facility] Medical History (Updated 11/30/23 @ 07:32 by Petrona Mauro MD) Distal radius fracture, right Overweight (BMI 25.0-29.9) Generalized anxiety disorder Basal cell carcinoma Mumps (~1970) Chicken pox Tinnitus (~2016) Depression (~1998) Fibromyalgia (~2015) Surgical History H/O wrist surgery Anesthesia History of endometrial ablation (~2003) Status post knee surgery (~2002) Family History Grandfather Stroke Grandmother Heart disease Social History marital status: household members: spouse housing: house occupational status: previously employed Smoking Status: Never smoker second hand exposure: Yes (childhood) alcohol intake: current substance use type: marijuana Meds Home Medications and Allergies Home Medications Medication Instructions Recorded Confirmed Type clobetasol 0.05 % topical ointment 1 applic topical .twice weekly #15 08/01/23 09/13/23 Rx grams estradiol 0.01% (0.1 mg/gram) See Rx Instructions vaginal 09/01/23 11/30/23 Rx vaginal cream .COMPLEX #42.5 grams gabapentin 400 mg capsule 400 mg PO ONCE PM #90 caps 10/12/23 11/30/23 Rx duloxetine 60 mg capsule,delayed 60 mg PO DAILY #4 caps 11/29/23 11/30/23 Rx release semaglutide (weight loss) 0.25 0.25 mg SUBCUT QWEEK 11/30/23 11/30/23 History mg/0.5 mL subcutaneous pen injector Allergies Allergy/AdvReac Type Severity Reaction Status Date / Time No Known Drug Allergies Allergy Verified 11/30/23 06:43 Review of Systems Review of Systems ROS: Yes All systems reviewed with the patient and are negative except as otherwise documented Exam Vital Signs (past 8 hours): - 11/30/23 06:50 Temperature 96.8 F L Pulse Rate 85 Respiratory Rate 16 Blood Pressure 109/71 Pulse Oximetry 95 Oxygen Delivery Method Room Air Oxygen Delivery Method Room Air Narrative Exam Narrative: Are oriented no acute distress height 6 ft 5 weight 175 lb. BMI 28. General exam no obvious distress Cardiovascular regular rate and rhythm Respiratory lungs clear to auscultation bilaterally Right upper extremity exam grossly normal alignment. Near normal range of motion. Sensation of stiffness with terminal extension and flexion. Well- healed FCR exposure scar no signs of infection. Grossly normal strength. Minimal swelling. No atrophy. Full finger and thumb range of motion. Mild decreased sensation with numbness and tingling to all the fingers worse with compression, positive Durkan's. Palpable radial pulse. Brisk capillary refill. Objective Imaging EMG nerve conduction study: My impression: EMG nerve conduction study showed evidence of mild median mononeuropathy at the wrist consistent with mild carpal tunnel syndrome without evidence of radiculopathy Assessment & Plan Assessment and plan (1) Painful orthopaedic hardware: Status: Acute (2) Carpal tunnel syndrome: Qualifiers: Laterality: right Qualified Code(s): G56.01 - Carpal tunnel syndrome, right upper limb Status: Acute (3) Distal radius fracture, right: Qualifiers: Encounter type: subsequent encounter Fracture type: closed Fracture morphology: unspecified fracture morphology Fracture healing: with routine healing Qualified Code(s): S52.501D - Unspecified fracture of the lower end of right radius, subsequent encounter for closed fracture with routine healing Status: Inactive Plan Regarding painful orthopedic hardware the patient's distal radius fracture is now healed. She would be appropriate for hardware removal. We discussed risks and benefits of this. May not change pain or stiffness. May result in wound healing problems. May have additional scarring. May have incomplete removal of hardware due to hardware breakage. Patient understands and agrees with the plan she would like to proceed with hardware removal. Regarding right carpal tunnel syndrome she was mild but persistent symptoms from her right carpal tunnel. Discussed separate open carpal tunnel release the same time as hardware removal. Discussed risks of persistent symptoms, pain, numbness, nerve damage, wound healing problems and that full nerve recovery can take months. Patient understands and agrees with the plan she would like to proceed with carpal tunnel release. The risks and benefits of the procedure have been discussed with the patient and given the opportunity to ask questions. The risks of surgery include but are not limited to infection, incomplete hardware removal, persistence of pain, damage to nerves and blood vessels, posttraumatic arthritis, DVT, PE, cardiopulmonary complications and . The patient expressed a thorough understanding of the risks and benefits of surgery and has elected to proceed. Consent was signed Time Spent With Patient Time with patient: less than 30 minutes
--- NOTE | 2023-11-30 07:34 | P.OP_ITS ---
Operative Date/Time/Diagnoses Date of procedure: 11/30/23 Time of procedure: 07:34 Pre-op diagnosis: 1. Right carpal tunnel syndrome 2. Painful orthopedic hardware right wrist 3. Right distal radius fracture, closed, healed subsequent encounter Post-op diagnosis: same Procedure & Clinicians Procedure: 1. Open carpal tunnel release right hand CPT code 84455 2. Removal hardware deep, right wrist CPT code 51025 separate incision + modifier 59 for separate surgery site for the incision Same procedure as scheduled: Yes Indications: The patient is a 62-year-old right-hand dominant female who sustained a right distal radius fracture intra-articular in February of 2023. She went underwent open reduction internal fixation. Since surgery her fracture has healed. She has had persistent stiffness and has worked with physical therapy. She is also developed numbness and tingling into her hand and EMG demonstrated carpal tunnel syndrome. This has persisted and become more bothersome. Patient has been indicated for open carpal tunnel release. She also desires hardware removal due to painful orthopedic hardware healed fracture and persistent stiffness. The risks and benefits of the procedure have been discussed with the patient and given the opportunity to ask questions. The risks of surgery include but are not limited to infection, incomplete removal of hardware, persistent nerve symptoms, persistence of pain, damage to nerves and blood vessels, posttraumatic arthritis, DVT, PE, cardiopulmonary complications and . Additionally we discussed nerve recovery can take months. The patient expressed a thorough understanding of the risks and benefits of surgery and has elected to proceed. Consent was signed. Surgeon: Petrona Mauro Click Yes if Unassisted: Yes Anesthesia Type: General and Local Operative Notes Findings: Right wrist: Retained volar locking distal radius plate and screws--removed using Arthrex screwdriver. Intraoperative fluoroscopy AP and lateral demo nstrated complete removal of volar plate and screws and healed distal radius fracture Right hand: Thickened transverse carpal ligament consistent with carpal tunnel syndrome. Median nerve with slight hourglass compression otherwise intact. No masses. Closure Type: primary Specimen(s): none sent Estimated Blood Loss (mL): 10 Blood products transfused: none Tourniquet time (min): 21 Procedure in detail: Patient was seen in the preoperative area the site of surgery was marked informed consent confirmed. The patient was brought back to the operating room by the anesthesia team positioned supine on operative table general anesthetic was administered a well-padded brachial tourniquet was applied to the right upper extremity. Patient was prepped and draped in the standard sterile fashion a formal time-out procedure was performed confirming patient's side and site of surgery and administration of appropriate preoperative antibiotics which was 2 g of Ancef. All were in agreement. Attention 1st turned to the right hand for the carpal tunnel release. An Esmarch was used for exsanguination the tourniquet raised on the arm to 250 mmHg. The stayed elevated for a total of 21 minutes. Attention was turned to the right hand an incision made in line with the 3rd webspace was made over the palm this was approximately 2-1/2 cm long. The incision was carefully carried through the palmar skin and subcutaneous tissue the fat was spread and the palmar fascia encountered and incised. Deep dissection was taken down to the level of the transverse carpal ligament this was notably thickened. This was transected carefully with a deep 15 blade once a rent was made the Rimrock elevator was inserted in the rest of the transverse carpal ligament was released on top of the Rimrock elevator which protected the neurovascular structures and tendons within the carpal tunnel. Transverse carpal ligament was notably thickened this was released proximally and distally. Proximally the release was carried into the palmar fascia and a scissors used to complete the release again on top of the protective Rimrock elevator proximally. Distally the release was carried to the fat distally for complete release. The median nerve was visualized and protected throughout the procedure and was observed to be free of any compressive pressure at the end of the release. There was a small area of hourglass compression centrally in the area where the transverse carpal ligament was the tightest. Median nerve otherwise intact. No masses or abnormal synovium was encountered in the carpal tunnel. At the end of the procedure hemostasis was achieved after tourniquet released with the bipolar cautery subcutaneous tissue was closed with 4-0 Monocryl and the skin with 4-0 nylon suture. Separate incision was made for removal of hardware of the distal radius this was through the previous FCR approach to distal radius volar scar this was reopened through the skin subcutaneous tissues. The fascia over the previous FCR approach tendon was then released the FCR was mobilized laterally floor of the FCR once again opened and the deep flexor pollicus longus mobilized laterally. the remnant of the pronator quadratus was mobilized and elevated off of the distal radius plate this was then exposed using the bipolar and Bovie cautery. The Arthrex screwdriver was used to remove the distal and proximal screws. Once all the screws were removed periosteal elevator was used to loosen the plate Bovie cautery was used to remove any scar adhesions and then the plate was removed. Prominences were rongeured and the wound was irrigated. Fluoroscopy was brought in for AP and lateral views of the right wrist demonstrated complete hardware removal and appropriate healed alignment of the distal radius fracture. At this point the tourniquet was released hemostasis was achieved and the wound was closed in a layered fashion with 2-0 PDS 4-0 Monocryl and 4-0 nylon suture. All fingers were noted to pink up well. 30 cc of 0.25% Marcaine and epinephrine was divided amongst the carpal tunnel and wrist incisions for local anesthetic. Sterile dressing was applied with Xeroform gauze, 4 x 4 gauze Tegaderm and then a 3 in Richie wrap. Patient was awoken from anesthesia and taken to the recovery unit in good condition there were no immediate complications from this procedure. All counts were correct. Complications: none Post-operative Condition: stable Disposition: PACU Plan for aftercare: 2 lb weight limit to right upper extremity. Full range of motion of wrist and fingers. May take off Richie bandage and or rewrap as desired. If dressings are saturated may change to clean bandages. Keep incisions clean dry and intact. Follow up in Orthopedic Clinic in 2 weeks for suture removal.
[2023-11-30] MEDS: CEFAZOLIN 2 GM/100 ML PREMIX 100 ML IV (08:03)
--- NOTE | 2023-11-30 08:11 | SUR.OPER ---
Supine on padded OR bed, head on pillow, arms secured on padded arm boards at <90 degrees abduction, legs uncrossed, safety belt at thigh, tape over blanket over lower legs.
[2023-11-30] MEDS: BUPIVACAINE 0.25% (PF) 30 ML, EPINEPHrine 0.15 MG INJ (08:17)
[2023-11-30] MEDS: OXYCODONE/ACETAMINOPHEN 5/325 TABLET 1 TAB PO (09:34)
== END 2023-11-30 10:22 | disposition home or self-care (01) ==
PROVIDERS: Family Provider Family Medicine; PCP Student in an Organized Health Care Education/Training Program; Referring Provider Orthopaedic Surgery Foot and Ankle Surgery; Visit Provider Orthopaedic Surgery Foot and Ankle Surgery
PROC: (CPT 64721; principal; 2023-11-30 07:45)
PROC: (CPT 20680; 2023-11-30 07:45)
DX: T84.84XA Pain due to internal orthopedic prosthetic devices, implants and grafts, initial encounter (principal); G56.01 Carpal tunnel syndrome, right upper limb
CPT/HCPCS: 20680; 64721; 73100; 76000; J0171; J0330; J0690; J1100; J2250; J2405; J2704; J3010

== ENCOUNTER → 2024-04-25 15:56 | Outpatient (CLI) | payer OTHER, SELFPAY | PROVIDERS: Family Provider Family Medicine; PCP Student in an Organized Health Care Education/Training Program; Visit Provider Student in an Organized Health Care Education/Training Program | DX: J02.9 Acute pharyngitis, unspecified (principal) | CPT/HCPCS: 87070 ==

== ENCOUNTER → 2024-07-13 16:58 | Outpatient (CLI) | payer BC, SELFPAY | PROVIDERS: Family Provider Family Medicine; PCP Student in an Organized Health Care Education/Training Program; Visit Provider Nurse Practitioner Family | DX: R30.0 Dysuria (principal) | CPT/HCPCS: 87086 ==

== ENCOUNTER → 2024-10-25 11:32 | Outpatient (CLI) | payer BC, SELFPAY ==
[2024-10-25 12:31] LABS: Add Manual Diff / Slide Review NO; Basophils Absolute Auto 0 /uL (0-100); Basophils Percent Auto 0.9 % (0-2); Eosinophils Absolute Auto 100 /uL (0-450); Eosinophils Percent Auto 2.4 % (2-4); Hematocrit 37.9 % (36-46); Hemoglobin 12.5 g/dL (12.0-16.0); Lymphocytes Absolute Auto 1900 /uL (1100-4500); Lymphocytes Percent Auto 35.4 % (25-40); Mean Corpuscular HGB Conc 33.1 % (30-36); Mean Corpuscular Volume 90.6 fL (80-100); Monocytes Absolute Auto 400 /uL (0-900); Monocytes Percent Auto 6.7 % (3-14); Neutrophils Absolute Auto 2900 /uL (1500-7000); Neutrophils Percent Auto 54.6 % (50-75); Platelet Count 404 X10^3/uL (150-400); Red Blood Cell Count 4.18 X10^6/uL (4.0-5.2); Red Cell Distribution Width 13.8 % (11.6-14.8); White Blood Cell Count 5.2 X10^3/uL (4.5-11.0)
[2024-10-25 12:52] LABS: HEMOLYSIS < 15 (0-50); Iron 81 ug/dL (37-170)
[2024-10-25 12:53] LABS: Alanine Aminotransferase 17 IU/L (<35); Albumin 4.2 g/dL (3.5-5.0); Albumin Globulin Ratio 1.4 (1.0-2.8); Alkaline Phosphatase 83 U/L (38-126); Aspartate Aminotransferase 27 IU/L (14-36); BUN Creatinine Ratio 15.8 (6-22); Bilirubin Total 0.5 mg/dL (0.2-1.3); Blood Urea Nitrogen 15 mg/dL (7-17); Calcium 9.6 mg/dL (8.4-10.2); Carbon Dioxide 28 mmol/L (22-32); Chloride 105 mmol/L (98-107); Cholesterol 268 mg/dL (140-199); Estimated Glomerular Filt Rate > 60 mL/min (>60); Globulin 2.9 g/dL (1.7-4.1); Glucose 88 mg/dL (80-110); HDL Cholesterol 69 mg/dL (40-60); HEMOLYSIS < 15 (0-50); LDL Cholesterol Calculated 168 mg/dL (<100); Sodium 138 mmol/L (137-145); Total Protein 7.1 g/dL (6.3-8.2); Triglycerides 157 mg/dL (35-150)
[2024-10-25 12:55] LABS: Potassium 5.4 mmol/L (3.4-5.1)
[2024-10-25 13:06] LABS: Percent Iron Saturation 40 % (15-50); Total Iron Binding Capacity 203 ug/dL (265-497); Transferrin 195 mg/dL (206-381)
[2024-10-25 13:24] LABS: Thyroid Stimulating Hormone 1.17 uIU/mL (0.47-4.68)
[2024-10-25 13:27] LABS: Ferritin 93 ng/mL (11-264)
== END ==
LOC: LAB 11:32
PROVIDERS: Family Provider Family Medicine; PCP Student in an Organized Health Care Education/Training Program; Referring Provider Student in an Organized Health Care Education/Training Program; Visit Provider Student in an Organized Health Care Education/Training Program
DX: Z13.220 Encounter for screening for lipoid disorders (principal); R53.83 Other fatigue
CPT/HCPCS: 36415; 80053; 80061; 82728; 83540; 83550; 84443; 85025

== ENCOUNTER → 2025-01-10 16:19 | Outpatient (CLI) | payer BC, SELFPAY ==
--- NOTE | 2025-01-10 16:20 | DI.MG.S_ITS ---
MM screening mammo BI: 01/10/2025. BI-RADS: 1 CLINICAL: 64-year old female for bilateral screening mammogram. Tyrer-Cuzick lifetime risk of 5.5%. No personal or first-degree family history of breast cancer. PRIOR EXAMS 09/20/2023, 04/11/2023, 07/26/2022, 07/13/2022, 07/17/2020, 07/12/2018. MAMMOGRAPHY TECHNIQUE: 2D and 3D (tomosynthesis) digital mammographic views obtained, with additional images as needed for full coverage. Current study was also evaluated with a Computer Aided Detection (CAD) system. DENSITY C. The breasts are heterogeneously dense, which may obscure small masses. MAMMOGRAPHY FINDINGS Bilateral: No suspicious mass, asymmetry, microcalcification, or other abnormality seen. IMPRESSION: * No evidence of malignancy. RECOMMENDATIONS Bilateral * Annual screening mammography. OVERALL ASSESSMENT CATEGORY BI-RADS-1: Negative. The [employer] recommends annual screening mammography beginning at age 40 for women with average risk of breast cancer. ELECTRONICALLY SIGNED: Donald Neumann M.D. on 01/11/2025 at 07:52:58 AM PT Interpreting Station ID: [id number]
== END ==
PROVIDERS: Family Provider Family Medicine; PCP Student in an Organized Health Care Education/Training Program; Referring Provider Student in an Organized Health Care Education/Training Program; Visit Provider Student in an Organized Health Care Education/Training Program
DX: Z12.31 Encounter for screening mammogram for malignant neoplasm of breast (principal); R92.333 Mammographic heterogeneous density, bilateral breasts
CPT/HCPCS: 77063; 77067

== ENCOUNTER → 2025-09-21 08:19 | Outpatient (CLI) | payer BC, SELFPAY ==
[2025-09-21 11:11] LABS: Add Manual Diff / Slide Review NO; Hematocrit 36.2 % (36-46); Hemoglobin 12.2 g/dL (12.0-16.0); Lymphocytes Absolute Auto 1700 /uL (1100-4500); Mean Corpuscular HGB Conc 33.8 % (30-36); Mean Corpuscular Hemoglobin 29.6 PG (26-34); Mean Corpuscular Volume 87.7 fL (80-100); Platelet Count 322 X10^3/uL (150-400)
[2025-09-21 11:17] LABS: Hemoglobin A1C% w Est Avg Glu 4.5 % (4.0-6.0)
[2025-09-21 11:23] LABS: HEMOLYSIS < 15 (0-50); Iron 37 ug/dL (37-170)
[2025-09-21 11:24] LABS: Alanine Aminotransferase 15 IU/L (<35); Albumin 4.2 g/dL (3.5-5.0); Albumin Globulin Ratio 1.4 (1.0-2.8); Alkaline Phosphatase 70 U/L (38-126); Blood Urea Nitrogen 16 mg/dL (7-17); Calcium 9.3 mg/dL (8.4-10.2); Carbon Dioxide 28 mmol/L (22-32); Chloride 106 mmol/L (98-107); Cholesterol 222 mg/dL (140-199); Estimated Glomerular Filt Rate > 60 mL/min (>60); Globulin 2.9 g/dL (1.7-4.1); Glucose 78 mg/dL (70-99); HDL Cholesterol 76 mg/dL (40-60); HEMOLYSIS < 15 (0-50); Potassium 5.0 mmol/L (3.4-5.1); Sodium 141 mmol/L (137-145); Total Protein 7.1 g/dL (6.3-8.2); Triglycerides 140 mg/dL (35-150)
[2025-09-21 11:39] LABS: Percent Iron Saturation 15 % (15-50); Total Iron Binding Capacity 246 ug/dL (265-497); Transferrin 225 mg/dL (206-381)
[2025-09-21 11:55] LABS: Thyroid Stimulating Hormone 1.17 uIU/mL (0.47-4.68)
[2025-09-21 11:58] LABS: Ferritin 47 ng/mL (11-264)
== END ==
PROVIDERS: PCP Student in an Organized Health Care Education/Training Program; Referring Provider Student in an Organized Health Care Education/Training Program; Visit Provider Student in an Organized Health Care Education/Training Program
DX: Z00.00 Encounter for general adult medical examination without abnormal findings (principal)
CPT/HCPCS: 36415; 80053; 80061; 82728; 83036; 83540; 83550; 84443; 85025